=== PATIENT | male | born 1980 | race Caucasian/White ===

== ENCOUNTER 2018-06-01 10:17 | Emergency (ER) | payer MEDICARE, MEDICAID ==
[~2018-06-01] VITALS: Ht 172.7 cm; Wt 77.3 kg
[~2018-06-01 10:17] MED LIST: IBUP-812 PO; NO HOME MEDS
[2018-06-01] MEDS ORDERED: OLANZapine **IM** 10 mg inj. IM ONE (10:35)
[2018-06-01 11:03] LABS: CLARITY,URINE CLEAR (Clear); COLOR,URINE YELLOW (Yellow); GLUCOSE, URINE NEGATIVE (Neg); KETONES,URINE 15 mg/dl (Neg); LEUKOCYTE ESTERASE ,URINE NEGATIVE (Neg); NITRITES, URINE NEGATIVE (Neg); OCCULT BLOOD,URINE TRACE-INTACT (Neg); PROTEIN,URINE NEGATIVE (Neg); UROBILINOGEN,URINE 0.2 E.U/dL (0.2-1.0)
[2018-06-01 11:20] LABS: URINE AMPHETAMINE SCREEN NEGATIVE (Neg); URINE BARBITUATE SCREEN NEGATIVE (Neg); URINE BENZODIAZEPINES SCREEN NEGATIVE (Neg); URINE CANNABINOID SCREEN POSITIVE (Neg); URINE COCAINE SCREEN NEGATIVE (Neg); URINE METHADONE SCREEN NEGATIVE (Neg); URINE OPIATE SCREEN NEGATIVE (Neg); URINE PHENCYCLIDINE SCREEN NEGATIVE (Neg)
[2018-06-01 11:23] LABS: UA COLLECTION TYPE CLN CATCH MIDSTREAM
[2018-06-01 11:26] LABS: BACTERIA,URINE NONE SEEN /HPF (Neg); RBC,URINE NONE SEEN /HPF (0-2); WBC,URINE NONE SEEN /HPF (0-4)
[2018-06-01 11:28] LABS: SQUAMOUS EPITHELIAL CELL,UR NONE SEEN /LPF (FEW)
[2018-06-01 12:14] LABS: BASOPHILS % (AUTO) 0.2 % (0-1); EOSINOPHILS % (AUTO) 0.1 % (0-6); HEMATOCRIT 43.1 % (42.0-52.0); LYMPHOCYTES # (AUTO) 0.6 X10'3 (1.1-4.8); LYMPHOCYTES % (AUTO) 7.3 % (21-51); MEAN CORPUSCULAR HEMOGLOBIN 30.2 PG (27.0-31.0); MEAN CORPUSCULAR HGB CONC 34.9 g/dL (33.0-36.5); MEAN CORPUSCULAR VOLUME 86.7 FL (78-98); MEAN PLATELET VOLUME 8.1 FL (7.4-10.4); MONOCYTES % (AUTO) 11.8 % (2-12); NEUTROPHILS # (AUTO) 7.1 X10'3 (1.8-7.7); NEUTROPHILS % (AUTO) 80.6 % (42-75); PLATELET COUNT 274 X10'3 (140-440); RED BLOOD COUNT 4.98 X10'6 (4.70-6.10); WHITE BLOOD COUNT 8.8 X10'3 (4.5-11.0)
[2018-06-01 12:27] LABS: ALANINE AMINOTRANSFERASE 122 U/L (12-78); ALBUMIN/GLOBULIN RATIO 1.1 (1.1-1.5); ALKALINE PHOSPHATASE 46 IU/L (46-116); ANION GAP 11 (8-16); ASPARTATE AMINO TRANSFERASE 71 U/L (10-37); BILIRUBIN,TOTAL 0.6 MG/DL (0.1-1.0); BLOOD UREA NITROGEN 12 MG/DL (7-18); BUN/CREATININE RATIO 11.3 (5.4-32.0); CALCIUM 9.3 MG/DL (8.5-10.1); CHLORIDE 97 MMOL/L (99-107); CREATININE 1.06 MG/DL (0.60-1.10); GLUCOSE 96 MG/DL (70-104); POTASSIUM 4.2 MMOL/L (3.5-5.1); SODIUM 133 MMOL/L (135-145); TOTAL CARBON DIOXIDE 25.1 MMOL/L (24-32); TOTAL PROTEIN 7.7 G/DL (6.4-8.2); eGFR 78 ML/MIN
[2018-06-01 12:36] LABS: ETHANOL < 0.010 GM/DL (0.0-0.010)
--- NOTE | 2018-06-01 13:32 | NUR ---
PT IS SLEEPING ON BACK. NO S/S OF DISTRESS NOTED.
--- NOTE | 2018-06-01 14:04 | NUR ---
PT IS SLEEPING, UNLABORED BREATHING, NO S/S OF DISTRESS.
--- NOTE | 2018-06-01 15:16 | NUR ---
PT UP TO USE RESTROOM, STABLE GAIT, NO CONCERNS AT THIS TIME.
--- NOTE | 2018-06-01 15:33 | NUR ---
PT'S MOTHER CALLED TO ASK ABOUT PT. I ASKED PT IF HE GIVES PERMISSION FOR ME TO SPEAK TO HIS MOTHER ABOUT HIS CONDITION, PT SAID HE WANTS TO TALK TO HER INSTEAD. PT WILL BE GIVEN PHONE TO CALL MOTHER.
--- NOTE | 2018-06-01 15:37 | NUR ---
PT WAS GIVEN PHONE TO CALL HIS MOTHER, HE HUNG IT UP AND SAID, "I'M FINE."
--- NOTE | 2018-06-01 15:49 | NUR ---
PT APPEARS AGITATED, ANXIOUS, REPEATEDLY WALKING TO WATER FOUNTAIN AND BACK TO BED. PT REPORTS HE FEELS, "OVERHEATED." ATTEMPTED TO TAKE TEMPATURE, BUT PT REFUSED, SAYING, "I'M FINE."
--- NOTE | 2018-06-01 15:59 | NUR ---
PT WAS POURING WATER ON HEAD, I ASKED HIM TO STOP, PT IS NOW IN BED.
--- NOTE | 2018-06-01 16:09 | NUR ---
PT IS ACTING PSYCHOTIC, CONFUSED, APPEARS TO BE GETTING AGITATED. CONSULTED WITH HODAN KNIGHT, VERBAL ORDER FOR BENADRYL 50 MG, HALDOL 5 MG, ATIVAN 2 MG.
[2018-06-01] MEDS ORDERED: diphenhydrAMINE 25mg capsule PO ONE (16:10)
[2018-06-01] MEDS ORDERED: LORazepam 1 MG tablet PO ONE (16:10)
[2018-06-01] MEDS ORDERED: haloperidol 5mg tablet PO ONE (16:10)
[2018-06-01] MEDS ORDERED: LORazepam 2 mg/ml vial IM ONE (16:25)
[2018-06-01] MEDS ORDERED: haloperidol lactate 5mg/ml inj IM ONE (16:25)
[2018-06-01] MEDS ORDERED: diphenhydrAMINE 50 mg/ml inj IM ONE (16:25)
--- NOTE | 2018-06-01 16:37 | NUR ---
ATTEMPTED TO GIVE PT PO MEDS BUT PT REFUSED, THREW MEDS ACROSS ROOM. CONSULTED WITH HODAN, VERBAL ORDER FOR IM REPLACEMENT.
--- NOTE | 2018-06-01 16:39 | NUR ---
PT THREW MEDS ACROSS ROOM, SECURITY ASSISTED, ALL MEDICATIONS ACCOUNTED FOR AND WASTED PROPERLY.
--- NOTE | 2018-06-01 17:26 | NUR ---
pt is sleeping now. no s/s of distress, rr wnl, will continue to monitor
--- NOTE | 2018-06-01 17:29 | NUR ---
attempted to get vital signs, pt refused, will attempt again in 2 hours.
--- NOTE | 2018-06-01 19:00 | NUR ---
patient is asleep in bed, vitals WNL.
--- NOTE | 2018-06-01 21:00 | NUR ---
pt is still sleeping soundly in bed. no signs or symptoms of distress observed
--- NOTE | 2018-06-01 23:17 | NUR ---
Pt is resting in bed quitly, offers no complaints at this time.
--- NOTE | 2018-06-02 01:19 | NUR ---
Pt is sleeping on L side, no S or S of distress.
--- NOTE | 2018-06-02 03:00 | NUR ---
Pt got up to use the restroom and drank from his pitcher of water. He got back into bed and went back to sleep shortly after.
--- NOTE | 2018-06-02 05:19 | NUR ---
PT is resting on back sleeping. No signs or symptoms of distress at this time.
[2018-06-02] MEDS ORDERED: OLAN5TAB3 PO (13:16)
--- NOTE | 2018-06-02 13:46 | NUR ---
Called Behavioral health for pt to be evaluated.
[2018-06-02] MEDS ORDERED: LORazepam 2 mg/ml vial IM ONE (17:30)
--- NOTE | 2018-06-02 17:57 | NUR ---
allie requesting a shot to help him calm down. Ativan given
--- NOTE | 2018-06-02 19:33 | NUR ---
The patient is resting on his bed. He gave disorganized replies to questions. He stood the entire time. He stated, "I'm trying to think of all the funny things in tthe world" When asked how his appetite was he stated that he was fasting because that is what the book said to do. He was unable to verbalize a plan for after he left the hospital. He did start to become agitated with the one to one so the assessment was stopped.
[2018-06-02] MEDS: OLANZapine 2.5MG tablet PO SCH ×2 (20:19→21:00)
--- NOTE | 2018-06-02 21:16 | NUR ---
The patient is asleep on his bed. He was awakened for his evening medications but he refused them but was disorganized and difficult to understand why he was refusing them. Will try again after a while to see if he will take them.
--- NOTE | 2018-06-02 22:33 | NUR ---
The patient appears to be asleep at this time
--- NOTE | 2018-06-03 00:49 | NUR ---
The patient was up to use the bathroom and again the patient was offered his zyprexa but he continues to refuse. He stated he has been getting better without the medicine.
--- NOTE | 2018-06-03 02:21 | NUR ---
The patient appears to be asleep at this time
--- NOTE | 2018-06-03 04:54 | NUR ---
The patient was up to use the bathroom several times. He is polite/quiet and now appears to be back in bed. He has appeared to be asleep the majority of the night.
--- NOTE | 2018-06-03 06:28 | NUR ---
Patient up and walking in his room. No distress observed. Continue to monitor.
[2018-06-03] MEDS: olanzapine 10mg tablet PO PRN (07:52)
--- NOTE | 2018-06-03 08:05 | NUR ---
Patient keeps getting up and using the restroom. Patient went into the bathroom, came out, knocked on the bathroom door and then went in again. Patient took PRN Zyprexa, 5 mg. Patient next to him is agitated and making anxious.
--- NOTE | 2018-06-03 09:48 | NUR ---
Patient sleeping supine. No restlessness observed. Continue to monitor.
--- NOTE | 2018-06-03 11:10 | NUR ---
Patient continues to sleep on right side. No restlessness observed. Continue to monitor.
--- NOTE | 2018-06-03 12:58 | NUR ---
Patient calm and standing in his room. Patient wanted to help clean the bathroom and techs allowed patient to help. Patient smiling after helping. No distress observed. Continue to monitor.
[2018-06-03] MEDS: LORazepam 1 MG tablet PO PRN (13:36)
[2018-06-03] MEDS: haloperidol 5mg tablet PO PRN (13:36)
--- NOTE | 2018-06-03 13:40 | NUR ---
Relieving RN for lunch, pt is slightly agitated, pacing around bed, thinks there is a "granny in the trash", pt refused to take benadryl "they are pink and will turn me into a girl...they are girl pills...if they were blue i would take them"
--- NOTE | 2018-06-03 15:10 | NUR ---
Patient visiting with his mom. No distress observed. Continue to monitor.
--- NOTE | 2018-06-03 16:49 | NUR ---
Patient ambulatory to BR, steady gait. No distress observed. Patient is polite and directable.
--- NOTE | 2018-06-03 18:48 | NUR ---
Assumed care of patient, pt. sitting up eating dinner at this time. Introduced self, pt. cooperative and pleasant, however appears somewhat hyper vigilant. Obtained new order from Dr. Villela to change Zyprexa order to 10mg Q HS, and 5 mg Q AM.
[2018-06-03] MEDS ORDERED: olanzapine 10mg tablet PO SCH (21:00)
--- NOTE | 2018-06-03 21:03 | NUR ---
Nursing Note: 1:1 completed at bedside, pt. continues to be cooperative and pleasant, however fatigued and slightly irritable and has trouble answering questions r/t fatigue. He is alert and oriented X2 (name and ). Pt. denies any S/I, H/I, V/H, or depression. Pt. Does report anxiety, states, "I want to get back home." He currently lives with his mother and would like to return there. This press writer explained that [facility] will evaluate him per need for continued 5150 status, and he voiced understanding. Pt. compliant with medications although slightly resistant, states, "I'm done with meds, I've been taking them all day." This press writer explained that there is only one more medication, Zyprexa, that he needs to take and pt. is compliant. Will continue to monitor.
--- NOTE | 2018-06-03 23:00 | NUR ---
Pt. continues to sleep, laying on his rt. side, rr even and unlabored.
--- NOTE | 2018-06-04 01:07 | NUR ---
Pt. asleep on his left side at this time, rr even and unlabord.
--- NOTE | 2018-06-04 03:02 | NUR ---
Pt. sleeping on rt. side, no s/s of distress. Will continue to monitor.
--- NOTE | 2018-06-04 05:04 | NUR ---
Pt. up to use the BR, able to ambulate independently, he returns back to bed. Will continue to monitor.
--- NOTE | 2018-06-04 05:57 | NUR ---
Pt. refused VS this AM, requested to have them taken later, will endorse to AM shift. Pt. returned back to sleep.
[2018-06-04] MEDS: OLANZAPINE 5 MG TABLET PO SCH (08:17)
--- NOTE | 2018-06-04 19:38 | NUR ---
Elopement band #[id number] placed on pt's left wrist. Educated pt why the elopement band was placed.
--- NOTE | 2018-06-04 19:56 | NUR ---
PT RESTLESS, DRANK MANY PICTURES OF WATER OVER THE DAY, PICTURE TAKEN FROM PT AND GIVEN ONE CUP OF WATER AT A TIME DUE TO CONCERNS WITH WATER INTOXICATION. NEW ORDERS RECEIVED FROM DR GARZA TO INCREASE PT'S HS ZYPREXA TO 15MG HS PER RECOMMENDATION BY DR TAM'S CONSULT NOTE FROM 06/02/18.
[2018-06-04] MEDS: LORazepam 1 MG tablet PO PRN (20:03)
[2018-06-04] MEDS: diphenhydrAMINE 25mg capsule PO PRN ×2 (20:04→20:49)
[2018-06-04] MEDS: haloperidol 5mg tablet PO PRN ×2 (20:04→20:49)
[2018-06-04] MEDS: OLANZapine 5mg rapidly disint. tablet PO SCH (20:04)
--- NOTE | 2018-06-04 20:07 | NUR ---
MEDICATED FOR AGGITATION WITH ATIVAN, BENADRYL AND HALDOL. PT ATTEMPTING TO GET AWAY FROM NURSE AND GOING INTO ANOTHER PT'S ROOM. SECURITY CALLED TO BEDSIDE AND PT TOOK MEDS.
--- NOTE | 2018-06-04 20:19 | NUR ---
PT WALKED OVER TO SINK AND SPIT OUT 2 OF HIS MEDS THAT WERE JUST GIVEN. ONE WAS A BENADRYL CAPSULE AND ANOTHER WAS A GREEN COLORED MED.
--- NOTE | 2018-06-04 20:49 | NUR ---
PT SPIT OUT HALDOL AND BENADRYL PO, ORDERS RECEIVED FOR IM.
[2018-06-04] MEDS ORDERED: haloperidol lactate 5mg/ml inj IM ONE (20:55)
[2018-06-04] MEDS ORDERED: diphenhydrAMINE 50 mg/ml inj IM ONE (20:55)
--- NOTE | 2018-06-04 21:01 | NUR ---
PT NOT COOPERATIVE WITH TAKING PO MEDS, IM ORDERS RECEIVED, SECURITY CALLED TO BEDSIDE PT STARTED TO RUN FOR EXIT. ASSISTED BACK TO BED AND MEDICATED WITH IM BENADRYL AND HALDOL.
--- NOTE | 2018-06-04 22:22 | NUR ---
PT FINALLY LYING IN BED AND RESTING.
[2018-06-05] MEDS: LORazepam 1 MG tablet PO PRN (02:36)
[2018-06-05] MEDS: haloperidol 5mg tablet PO PRN (02:37)
[2018-06-05] MEDS: OLANZAPINE 5 MG TABLET PO SCH (02:37)
--- NOTE | 2018-06-05 02:42 | NUR ---
PT BECOMING AGGITATED AGAIN, UP TO BR SEVERAL TIMES. MEDICATED FOR AGGITATION WITH PRN MEDS, BUT REFUSED BENADRYL. ATTEMPTING TO KEEP MEDS UNDER TONGUE BUT CHECKED WITH FLASHLIGHT AND APPEARS TO HAVE SWALLOWED THEM.
--- NOTE | 2018-06-05 04:20 | NUR ---
WENT BACK TO SLEEP AFTER BEING MEDICATED.
--- NOTE | 2018-06-05 07:23 | NUR ---
pt sleeping on right side no distress noted.
--- NOTE | 2018-06-05 08:30 | NUR ---
pt eating breakfast, no distress noted. no assistance needed.
--- NOTE | 2018-06-05 11:30 | NUR ---
pt sleeping on back. rr equal nonlabored. no distress noted.
--- NOTE | 2018-06-05 15:42 | NUR ---
pt sitting on side of bed speaking with mother. no distress noted.
--- NOTE | 2018-06-05 16:26 | NUR ---
pt standing behind bed. asked what he is doing. stated he didnt want to pass gas in the bed.
--- NOTE | 2018-06-05 17:12 | NUR ---
found 3 tubes of toothpaste at pt bedside. pt has been eating toothpaste and placing it on his neck. given washcloth to clean toothpaste on mouth, hair and hands. Pt refused to wash it off.
--- NOTE | 2018-06-05 20:00 | NUR ---
PT STANDING BY HIS BED, PLAYING WITH THE CURTAINS, PT TOLD TO RETURN TO BED. PT COMPLIED.
[2018-06-05] MEDS: OLANZapine 5mg rapidly disint. tablet PO SCH (21:00)
--- NOTE | 2018-06-05 21:00 | NUR ---
PT RESTING QUIETLY IN BED
--- NOTE | 2018-06-05 21:45 | NUR ---
pt refused to take oral zypreza 15 mg stating he "didn't want to turn into a girl". Pt insists on IM zyprexa. Pt has no swallowing issues.
--- NOTE | 2018-06-05 22:45 | NUR ---
PT RESTING QUIETLY IN BED
--- NOTE | 2018-06-06 00:10 | NUR ---
PT RESTING QUIETLY IN BED
--- NOTE | 2018-06-06 02:20 | NUR ---
PT RESTING QUIETLY IN BED
--- NOTE | 2018-06-06 04:01 | NUR ---
PT RESTING QUIETLY IN BED
--- NOTE | 2018-06-06 06:30 | NUR ---
Assumed care from nurseYesenia. Pt sleeping right side, normal RR, even and unlabored. No s/s of distress.
[2018-06-06] MEDS: OLANZAPINE 5 MG TABLET PO SCH (08:09)
--- NOTE | 2018-06-06 08:27 | NUR ---
Pt awake, pacing appears confused and disoriented. Encouraged pt to sit back on his bed to decreases risk of falls. Pt agreed and sat down but continues to sit then stand then sit then stand. Olanzapine 5mg given. Pt compliant and thanked this nurse.
[2018-06-06] MEDS: LORazepam 1 MG tablet PO PRN ×2 (08:36→14:12)
--- NOTE | 2018-06-06 09:28 | NUR ---
Pt sleeping on his back normal RR even and unlabored.
--- NOTE | 2018-06-06 11:37 | NUR ---
Pt given Ativan at 0836 and went to sleep shortly after. He is on his left side with the blankets over his head. No s/s of distress.
--- NOTE | 2018-06-06 13:25 | NUR ---
Pt up eating; then laid down after he ate and is now laying on his back with is eyes closed; RR even and unlabored. No s/s of distress.
--- NOTE | 2018-06-06 15:17 | NUR ---
Pt pacing the floors, mumbling to himself, standing with his face in the curtain, sitting then standing and going in and out of the bathroom; pt encouraged numerous times to relax, look at magazines, color. do a work search puzzle, deep breath exercies suggested and education provided. Pt continues and is unable to focus. Anxiety increased. Pt given Ativan 2mg PO and encouraged to relax on his bed.
--- NOTE | 2018-06-06 17:11 | NUR ---
Pt continues to sleep; RR even and unlabored. No s/s of distress.
--- NOTE | 2018-06-06 17:57 | NUR ---
Patient refused vital signs. States he does not want "a female to touch him."
--- NOTE | 2018-06-06 19:14 | NUR ---
rcvd report assumed care from Devika MANNING. Pt was sitting on his bed eating dinner at change of shift. Pt repeatedly asking for toothpaste to put on his face. Pt also requests water. He tells dayswift nurse "you get an A+ today." Pt is smiling and pleasant. Denies a/vh, denies s/i. Pt states he is here because "My mom and my counselor said I should come here for a 3 day evaluation so im here." Pt reports sleeping well, appetite is good.
--- NOTE | 2018-06-06 19:38 | NUR ---
pts mom is here visiting.
[2018-06-06] MEDS: OLANZapine 5mg rapidly disint. tablet PO SCH (20:12)
--- NOTE | 2018-06-06 20:39 | NUR ---
Pt up to bathroom to brush teeth.
--- NOTE | 2018-06-06 20:59 | NUR ---
pt laying on his back sleeping rr even and unlabored. Pt was resistant to taking evening meds stating "I only take ativan." Pt initially refused then a few minutes later asked for the pills. Pt also requested water and toothpaste. Pt smeared a small amount of toothpaste on his face before getting in to bed.
--- NOTE | 2018-06-06 23:40 | NUR ---
Pt laying on his left side sleeping rr even and unlabored no s/s distress.
--- NOTE | 2018-06-07 01:51 | NUR ---
Pt laying on his left side sleeping rr even and unlabored no s/s distress.
--- NOTE | 2018-06-07 03:56 | NUR ---
pt is laying on his left side sleeping rr even and unlabored no s/s distress.
--- NOTE | 2018-06-07 05:48 | NUR ---
Pt is awake stating he slept good. States "I just want to go home, my mom said to come here for 3 days but Im ready to go." He has redness on his cheek and is asking for toothpaste to brush his teeth. Pt then states he is going to put toothpaste on his face. I offered to discuss his pimple with the doctor for a medication and pt stated "No I just use toothpaste, I dont want medicine." Did not give toothpaste to patient for his face. He is now laying down w/the blanket over him, appears to be resting comfortably.
--- NOTE | 2018-06-07 06:32 | NUR ---
Patient sleeping on right side. No restlessness observed. Continue to monitor
--- NOTE | 2018-06-07 08:12 | NUR ---
Patient up and eating breakfast. No distress observed. Continue to monitor.
[2018-06-07] MEDS: OLANZAPINE 5 MG TABLET PO SCH (08:34)
--- NOTE | 2018-06-07 10:10 | NUR ---
Patient standing up in room. No distress observed. Continue to monitor.
--- NOTE | 2018-06-07 11:55 | NUR ---
Patient had a snack and put the remaining snack on the nurse's station counter. No distress observed. Continue to monitor.
--- NOTE | 2018-06-07 14:39 | NUR ---
Patient sitting up in bed. No distress observed. Continue to monitor.
--- NOTE | 2018-06-07 16:36 | NUR ---
Patient awake and laying in bed. No distress observed. Continue to monitor.
--- NOTE | 2018-06-07 17:35 | NUR ---
Patient visiting with his mother. No distress observed. Continue to monitor.
--- NOTE | 2018-06-07 18:42 | NUR ---
rcvd report from Gabbie MANNING. Assumed care of pt. Pt ate dinner meal, is acting bizzare, gets up and stands in the corner periodically and then sits back in bed. Pt has toothpaste on his face. Pt states his day was good, he admits to spitting out pills, but cant say if they were during the day or night. Explained to pt he is here to work on getting well and encouraged pt to follow med regimen. Pt states he understands.
[2018-06-07] MEDS: olanzapine 10mg tablet PO PRN (18:54)
[2018-06-07] MEDS: OLANZapine 5mg rapidly disint. tablet PO SCH (20:42)
[2018-06-07] MEDS: LORazepam 1 MG tablet PO PRN (21:42)
--- NOTE | 2018-06-07 21:44 | NUR ---
Pt was anxious at the beginning of shift, was given prn zyprexa which seemed to work for a short time. Pt was then given evening dose of 15mg of zyprexa. Pt had order for ativan but was combined w/other meds, spoke w/Tasha Guerrero, instructed to give ativan only. pt was med compliant w/all meds tonight. Pt is requesting toothpaste to "brush his teeth." Pts toothbrush is still in the wrapper and I told him to open the wrapper and Id get him toothpaste and he states "I dont want to use the toothpaste I want to use my finger, I dont want to be weird." I asked why he thought using the toothbrush on his teeth is weird? Pt states "I want to put it on my neck and my face." I replied "toothpaste is only for teeth, not necks and faces." Pt states ok. This seems to satisfy his request for toothpaste for the moment.
--- NOTE | 2018-06-07 23:05 | NUR ---
Pt is sleeping laying on his left side rr even and unlabored no s/s distress
--- NOTE | 2018-06-08 02:38 | NUR ---
Pt is sleeping on his right side rr even and unlabored.
--- NOTE | 2018-06-08 05:42 | NUR ---
pt is sleeping
[2018-06-08] MEDS: LORazepam 1 MG tablet PO PRN (07:09)
[2018-06-08] MEDS: OLANZAPINE 5 MG TABLET PO SCH (07:09)
[2018-06-08] MEDS: diphenhydrAMINE 25mg capsule PO PRN (07:09)
[2018-06-08] MEDS: haloperidol 5mg tablet PO PRN (07:10)
[2018-06-08] MEDS: OLANZapine 5mg rapidly disint. tablet PO SCH (19:14)
--- NOTE | 2018-06-08 19:36 | NUR ---
THe patient was resting on his bed. When approached for the evening assessment he had toothpaste on his face and neck which he stated was for acne. The patient has very poor insight. He denies that he needs medications or mental health treatment. He stated that he is ready to go home to be with his mother. When asked why he was here he stated, "My mom said to come here for 3 days to calm down" He stated his discharge plan was to return home and make his garden and clean the back yard. He stated he has been living with his brother. He denies thoughts to harm himself or others. When asked how his mood was he stated "Awesome. Really awesome" He was easily agitated. He was given his HS medications early.
--- NOTE | 2018-06-08 21:15 | NUR ---
The patient appears to be asleep at this time.
--- NOTE | 2018-06-08 22:24 | NUR ---
The patient appears to be sleeping
--- NOTE | 2018-06-09 00:07 | NUR ---
The patient appears to be asleep at this time.
--- NOTE | 2018-06-09 01:45 | NUR ---
The patient appears to be sleeping
--- NOTE | 2018-06-09 04:01 | NUR ---
The patient appears to be asleep
--- NOTE | 2018-06-09 07:00 | NUR ---
Assumed care from nurse, NIGEL Curran. Pt sleeping right side, normal RR, even and unlabored. No s/s of distress.
[2018-06-09] MEDS: OLANZAPINE 5 MG TABLET PO SCH (07:06)
--- NOTE | 2018-06-09 08:00 | NUR ---
Normal RR, even and unlabored. No s/s of distress. Asking for breakfast.
--- NOTE | 2018-06-09 09:00 | NUR ---
Pt sleeping , normal RR, even and unlabored. No s/s of distress. Will continue to monitor.
--- NOTE | 2018-06-09 10:00 | NUR ---
Patient up and down from bed. No s/s of distress.
--- NOTE | 2018-06-09 12:00 | NUR ---
Patient awake and laying in bed. No distress observed. Continue to monitor.
--- NOTE | 2018-06-09 13:00 | NUR ---
Patient awake and laying in bed. No distress observed. Continue to monitor.
--- NOTE | 2018-06-09 14:00 | NUR ---
Patient awake and laying in bed. Patient up and down to bathroom. Continue to monitor.
--- NOTE | 2018-06-09 15:00 | NUR ---
Patient awake and laying in bed. No distress observed. Continue to monitor.
--- NOTE | 2018-06-09 16:00 | NUR ---
Patient awake and laying in bed. Patient pacing back and forth to bathroom. Continue to monitor.
--- NOTE | 2018-06-09 17:00 | NUR ---
No distress observed. Continue to monitor.
--- NOTE | 2018-06-09 18:24 | NUR ---
Patient report given to NIGEL Mayfield
--- NOTE | 2018-06-09 18:40 | NUR ---
Patient sitting on side of bed eating dinner, he is very quiet. I will continue to monitor.
[2018-06-09] MEDS: LORazepam 1 MG tablet PO PRN (19:54)
[2018-06-09] MEDS: OLANZapine 5mg rapidly disint. tablet PO SCH (19:54)
[2018-06-10 05:45] VITALS: BP 113/75
[2018-06-10] MEDS: OLANZAPINE 5 MG TABLET PO SCH (08:33)
--- NOTE | 2018-06-10 12:55 | NUR ---
PT IS RESTLESS. PT IS REQUESTING WATER. PT WAS PROVIDED A FULL PITCHER OF WATER AND ASKING TO WAIT A LITTLE BIT FOR MORE.
--- NOTE | 2018-06-10 12:56 | NUR ---
PT IS MANIC AND ASKING FOR THINGS NON STOP
[2018-06-10] MEDS: LORazepam 1 MG tablet PO PRN (13:34)
[2018-06-10] MEDS: haloperidol 5mg tablet PO PRN (13:35)
[2018-06-10] MEDS: diphenhydrAMINE 25mg capsule PO PRN (13:35)
--- NOTE | 2018-06-10 13:55 | NUR ---
relieving RN for lunch, pt is resting quietly on bed
--- NOTE | 2018-06-10 14:23 | NUR ---
GAVE REPORT TO INTAKE STAFF FOR [facility] IN [place]
--- NOTE | 2018-06-10 15:17 | NUR ---
Pt has been accepted at [facility] by Dr. Quintanilla. He will being going to [address] and will be picked up approximately @ 1700. Report to be called to [phone].
--- NOTE | 2018-06-10 15:23 | NUR ---
Marck from [facility] called and inquired about last vital signs. Call report to [phone] when pt picked up.
--- NOTE | 2018-06-10 16:28 | NUR ---
Report called to Dino MANINNG at [facility] [phone]
--- NOTE | 2018-06-10 16:36 | NUR ---
Report called to Dino MANNING at [facility] [phone]. Pt escorted out with ride and few belongings in stable condition.
== END 2018-06-10 16:49 ==
LOC: ER 10:18
DX: F20.9 Schizophrenia, unspecified (principal); Z56.0 Unemployment, unspecified
CPT/HCPCS: 36415; 80053; 80305; 80320; 81001; 84443; 85025; 96372; 99285; J1200; J1630; J2060; Q0163

== ENCOUNTER 2020-08-26 11:19 | Emergency (ER) | payer MEDICAID ==
[~2020-08-26] VITALS: Ht 172.7 cm; Wt 73.8 kg
[~2020-08-26 11:19] MED LIST changes: -IBUP-812 PO; -NO HOME MEDS; +OLAN5TAB3 PO
[2020-08-26 12:12] VITALS: BP 126/87
== END 2020-08-26 13:04 | disposition left against medical advice (07) ==
LOC: ER 11:20
DX: F30.9 Manic episode, unspecified (principal); Z53.21 Procedure and treatment not carried out due to patient leaving prior to being seen by health care provider

== ENCOUNTER 2020-11-20 11:00 | Emergency (ER) | payer MEDICAID ==
[~2020-11-20] VITALS: Ht 172.7 cm; Wt 81.8 kg
[2020-11-20 12:15] LABS: URINE AMPHETAMINE SCREEN NEGATIVE (Neg); URINE BARBITUATE SCREEN NEGATIVE (Neg); URINE BENZODIAZEPINES SCREEN NEGATIVE (Neg); URINE CANNABINOID SCREEN POSITIVE (Neg); URINE COCAINE SCREEN NEGATIVE (Neg); URINE METHADONE SCREEN NEGATIVE (Neg); URINE OPIATE SCREEN NEGATIVE (Neg); URINE PHENCYCLIDINE SCREEN NEGATIVE (Neg)
[2020-11-20 12:44] LABS: ALANINE AMINOTRANSFERASE 28 U/L (12-78); ALBUMIN 4.5 G/DL (3.4-5.0); ALBUMIN/GLOBULIN RATIO 1.2 (1.1-1.5); ALKALINE PHOSPHATASE 49 IU/L (46-116); ANION GAP 13 (8-16); ASPARTATE AMINO TRANSFERASE 36 U/L (10-37); BILIRUBIN,TOTAL 0.7 MG/DL (0.1-1.0); BLOOD UREA NITROGEN 10 MG/DL (7-18); BUN/CREATININE RATIO 9.8 (5.4-32.0); CALCIUM 9.1 MG/DL (8.5-10.1); CHLORIDE 103 MMOL/L (99-107); CREATININE 1.02 MG/DL (0.60-1.10); ETHANOL < 0.010 GM/DL (0.0-0.010); GLUCOSE 94 MG/DL (70-104); POTASSIUM 3.9 MMOL/L (3.5-5.1); SODIUM 141 MMOL/L (135-145); TOTAL CARBON DIOXIDE 24.7 MMOL/L (24-32); TOTAL PROTEIN 8.4 G/DL (6.4-8.2); eGFR 80 ML/MIN
[2020-11-20 13:37] LABS: BASOPHILS % (AUTO) 0.3 % (0-1); EOSINOPHILS % (AUTO) 0 % (0-6); HEMATOCRIT 47.9 % (42.0-52.0); HEMOGLOBIN 16.1 g/dl (14.0-17.9); LYMPHOCYTES # (AUTO) 0.8 X10'3 (1.1-4.8); LYMPHOCYTES % (AUTO) 7.9 % (21-51); MEAN CORPUSCULAR HEMOGLOBIN 30.1 PG (27.0-31.0); MEAN CORPUSCULAR HGB CONC 33.5 g/dL (33.0-36.5); MEAN CORPUSCULAR VOLUME 89.9 FL (78-98); MEAN PLATELET VOLUME 8.5 FL (7.4-10.4); MONOCYTES # (AUTO) 0.8 X10'3 (0-0.9); MONOCYTES % (AUTO) 8.7 % (2-12); NEUTROPHILS # (AUTO) 8.1 X10'3 (1.8-7.7); NEUTROPHILS % (AUTO) 83.1 % (42-75); PLATELET COUNT 403 X10'3 (140-440); RED BLOOD COUNT 5.33 X10'6 (4.70-6.10); RED CELL DISTRIBUTION WIDTH 12.9 % (11.5-14.5); WHITE BLOOD COUNT 9.7 X10'3 (4.5-11.0)
--- NOTE | 2020-11-20 17:04 | NUR ---
PACKET FAXED TO [facility]
[2020-11-20 17:09] LABS: CLARITY,URINE CLEAR (Clear); COLOR,URINE STRAW (Yellow); UA COLLECTION TYPE CLN CATCH MIDSTREAM
[2020-11-20 17:10] LABS: GLUCOSE, URINE NEGATIVE (Neg); KETONES,URINE 40 mg/dl (Neg); LEUKOCYTE ESTERASE ,URINE NEGATIVE (Neg); NITRITES, URINE NEGATIVE (Neg); OCCULT BLOOD,URINE NEGATIVE (Neg); PROTEIN,URINE NEGATIVE (Neg); UROBILINOGEN,URINE 0.2 E.U/dL (0.2-1.0)
--- NOTE | 2020-11-20 17:22 | NUR ---
PT'S FAMILY'S PHONE NUMBERS: MARGY EDMOND - AUNT: [phone] ANDREAS INFANTE - MOM: [phone]
[2020-11-20] MEDS: OLANZapine 5mg rapidly disint. tablet PO SCH (17:39)
--- NOTE | 2020-11-20 17:50 | NUR ---
PT REFUSED VITALS
--- NOTE | 2020-11-20 18:20 | NUR ---
Patient acting OCD. Wants water but not in a pitcher. Wants food but doesn't want his meal tray. Continue to monitor.
--- NOTE | 2020-11-20 19:30 | NUR ---
One to one with the patient to assess for severity of thought disorder. Initially he would not verbalize his replies but was humming them. When asked if he was having pain he started giving verbal replies but they did not correlate to what was being asked. He stated, "I want to be able to see Abhinav. My booties is too hot" He did know he was in the hospital but when asked why stated, "Because I need to see my mom and dad" He denied A/V hallucinations but is actively responding to internal stimuli and stated "My mom told me to shoosh" When asked when his last bowel movement he replied, "I don't do that" He is disorganized. He refused to eat his evening meal. He appears restless. He denies suicidal or homicidal ideation.
--- NOTE | 2020-11-20 21:15 | NUR ---
The patient appears to be sleeping
--- NOTE | 2020-11-20 22:59 | NUR ---
The patient appears to be sleeping
--- NOTE | 2020-11-21 00:33 | NUR ---
The patient currently appears to be sleeping but restlessly
--- NOTE | 2020-11-21 01:58 | NUR ---
The patient is responding to internal stimuli. He is disorganized. He is refusing to eat. He is very restless. MD made aware and orders received.
[2020-11-21] MEDS ORDERED: OLANZapine 5mg rapidly disint. tablet PO ONE (02:00)
--- NOTE | 2020-11-21 02:42 | NUR ---
The patient is restless. Up to use the bathroom
--- NOTE | 2020-11-21 04:30 | NUR ---
The patient appears to be sleeping
--- NOTE | 2020-11-21 06:45 | NUR ---
Received Pt in bed sleeping w/o distress.
[2020-11-21] MEDS: OLANZapine 5mg rapidly disint. tablet PO SCH (08:42)
--- NOTE | 2020-11-21 09:30 | NUR ---
Pt wke breifly and took AM med. Pt appeared confused and asked for water. Pt got up to use bathroom and returned to sleep. Pt did nit eat but a few bites of breakfast.
--- NOTE | 2020-11-21 12:47 | NUR ---
Pt got up again to use bathroom and to brush his teeth. Pt returned to bed and was given water.
--- NOTE | 2020-11-21 12:59 | NUR ---
up in bed eating his lunch.
--- NOTE | 2020-11-21 15:19 | NUR ---
Pt continues to request ice water intermitently. He says words and sits up in bed then lays back down. Up to bathroom again.
--- NOTE | 2020-11-21 17:22 | NUR ---
PATIENT REFUUS BLOOD PRESSURE, BUT ALLOWED ME TO GET HIS HEART RATE AND SAT LEVELS.
[2020-11-21] MEDS ORDERED: OLANZapine 2.5MG tablet PO STA (17:34)
[2020-11-21] MEDS ORDERED: LORazepam 1 MG tablet PO PRN (17:35)
--- NOTE | 2020-11-21 18:19 | NUR ---
The patient refused his dinner tray. He is very disorganized and restless. He did take the PM zyprexa dose. He presents as distressed. He stated that he is being told he can't eat anymore "because I want to live" He is very disheveled. He is unable to verbalize a plan for food, long term or clothing. He is unable to answer when he last had a bowel movement.
--- NOTE | 2020-11-21 21:04 | NUR ---
The patient appears to be sleeping
--- NOTE | 2020-11-21 23:02 | NUR ---
The patient appears to be sleeping
--- NOTE | 2020-11-22 02:32 | NUR ---
The patient currently appears to be sleeping but has been up to use the bathroom.
--- NOTE | 2020-11-22 04:03 | NUR ---
The patient appears to be sleeping
--- NOTE | 2020-11-22 05:38 | NUR ---
PT REFUSED MORNING VITALS.
--- NOTE | 2020-11-22 07:02 | NUR ---
Pt appears to be sleeping, but is intermittently talking and is restless.
[2020-11-22] MEDS: OLANZapine 5mg rapidly disint. tablet PO SCH ×2 (10:42→20:06)
--- NOTE | 2020-11-22 11:09 | NUR ---
Pt. appears intermittently restless, asking to change beds, pt. informed we can change his linens, but he may not change beds. Pt. is now laying in bed.
--- NOTE | 2020-11-22 13:13 | NUR ---
Pt is calm and cooperative. Occationally yells. Given a lunch tray by a tech. He refused the tray because he didn't want food from a cop winder(not an officer). I removed the tray then brought it back. He accepted the food.
--- NOTE | 2020-11-22 19:34 | NUR ---
Patient received sleeping; briefly woke to use the restroom and returned to bed. Patient sat up for physical assessment; denies discomfort and returned to sleep.
--- NOTE | 2020-11-22 21:02 | NUR ---
Patient observed sleeping; does not appear to be having difficulty. Even, non labored resperations; observed self repositioning.
--- NOTE | 2020-11-22 23:32 | NUR ---
Patient appears to be sleeping without difficulty. No respiratory distress presented. Self repositioning.
--- NOTE | 2020-11-23 01:05 | NUR ---
Patient appears to be sleeping without difficulty. Continues to self reposition and no respiratory distress presented.
--- NOTE | 2020-11-23 03:29 | NUR ---
Patient observed sleeping and does not appear to be having difficulty. No respirator distress observed and self repositioning.
--- NOTE | 2020-11-23 05:03 | NUR ---
Patient appears to be sleeping without difficulty. No respiratory distress observed. Patient continues to slef reposition.
[2020-11-23] MEDS: OLANZapine 5mg rapidly disint. tablet PO SCH ×2 (08:27→19:55)
--- NOTE | 2020-11-23 09:22 | NUR ---
Pt in bed resting comfortably. Requested Ice water and has no other needs at this time.
--- NOTE | 2020-11-23 12:11 | NUR ---
Pt in bed asleep. No s/s of distress at this time.
--- NOTE | 2020-11-23 16:12 | NUR ---
Pt quiet in bed. No needs at this time.
--- NOTE | 2020-11-23 19:16 | NUR ---
Pt finished meal, pt calm and cooperative, denies MH symptoms, in no distress at this time.
--- NOTE | 2020-11-23 21:32 | NUR ---
Pt appears to be sleeping, in no distress.
--- NOTE | 2020-11-24 00:18 | NUR ---
Pt up to the bathroom, back in bed lying on his right side, no distress noted.
--- NOTE | 2020-11-24 02:14 | NUR ---
Pt appears to be sleeping. No distress noted.
--- NOTE | 2020-11-24 05:03 | NUR ---
Pt appears to be sleeping, no distress noted.
--- NOTE | 2020-11-24 09:04 | NUR ---
Pt requested to have 08 meds at 10.
[2020-11-24] MEDS: OLANZapine 5mg rapidly disint. tablet PO SCH ×2 (10:23→20:05)
--- NOTE | 2020-11-24 17:10 | NUR ---
Patient sleeping in right side. No distress observed. Continue to monitor.
--- NOTE | 2020-11-24 19:34 | NUR ---
One to one with the patient to assess severity of thought disorder and observe his behaviors. The patient is now eating and he ate 100% of his meals. He still verbalizes delusional thoughts but he was better able to articulate his needs. He is reporting that he is experiencing acid reflux and that he was drinking water to help with that but he is asking for prn tums. Rex KNIGHT made aware and orders received. The patient stated that he felt "a little depressed because I have to wait until July 27 until I get to [place]...I only have so much time to play games..." Stated he communicates with her all the time. He has been polite and cooperative.
[2020-11-24] MEDS ORDERED: calcium carbonate 500mg chew tablet PO ONE (20:00)
[2020-11-24] MEDS: calcium carbonate 500mg chew tablet PO SCH (20:00)
--- NOTE | 2020-11-24 21:26 | NUR ---
The patient appears to be sleeping
--- NOTE | 2020-11-24 23:27 | NUR ---
THe patient appears to be sleeping
--- NOTE | 2020-11-25 01:02 | NUR ---
The patient appears to be sleeping
--- NOTE | 2020-11-25 03:48 | NUR ---
The patient appears to be sleeping well
--- NOTE | 2020-11-25 04:58 | NUR ---
The patient appears to be sleeping
[2020-11-25] MEDS: OLANZapine 5mg rapidly disint. tablet PO SCH ×2 (08:55→20:19)
[2020-11-25] MEDS: calcium carbonate 500mg chew tablet PO SCH ×3 (08:55→18:13)
--- NOTE | 2020-11-25 08:55 | NUR ---
Patient given meds, meds was well tolerated well.
--- NOTE | 2020-11-25 10:00 | NUR ---
patient sleeping at this time
--- NOTE | 2020-11-25 11:00 | NUR ---
Patient in bed sleeping
--- NOTE | 2020-11-25 12:09 | NUR ---
Patient appear to be sleeping
--- NOTE | 2020-11-25 12:39 | NUR ---
Scheduled med given. Patient ambulate to the bathroom
--- NOTE | 2020-11-25 13:41 | NUR ---
Patient sleeping comfortably on bed, no distress noted at this time.
--- NOTE | 2020-11-25 14:29 | NUR ---
Patient resting on bed, no distress noted
--- NOTE | 2020-11-25 16:00 | NUR ---
Patient resting in bed, awake.
--- NOTE | 2020-11-25 19:02 | NUR ---
One to one with the patient. His replies were mildly disorganized. He described his mood was "good" He has not had any behaviors that have required redirection. He ate 100% of his evening meal. He stated that he felt the medications were helping him and he has been treatment compliant. When asked what his plans for the future was he stated [place] but that he needed to read the book first. He complained of pain in his arms and then added, "I just need to eat celery and I'll be alright"
--- NOTE | 2020-11-25 21:37 | NUR ---
The patient appears to be sleeping
--- NOTE | 2020-11-25 23:18 | NUR ---
The patient appears to be sleeping
--- NOTE | 2020-11-26 01:34 | NUR ---
The patient appears to be sleeping
--- NOTE | 2020-11-26 03:39 | NUR ---
The patient appears to be sleeping
--- NOTE | 2020-11-26 04:54 | NUR ---
The patient appears to be sleeping
[2020-11-26 06:06] VITALS: BP 119/97
--- NOTE | 2020-11-26 07:16 | NUR ---
PT AWAKE, SITTING ON BED, TALKING WITH THE PATIENT IN THE BED NEXT TO HIM
[2020-11-26] MEDS: OLANZapine 5mg rapidly disint. tablet PO SCH (07:57)
[2020-11-26] MEDS: calcium carbonate 500mg chew tablet PO SCH ×2 (07:57→12:42)
--- NOTE | 2020-11-26 08:15 | NUR ---
pt up out of bed, amulating with walker to bathroom, uses fww
--- NOTE | 2020-11-26 10:16 | NUR ---
pt sleeping on bed
--- NOTE | 2020-11-26 11:20 | NUR ---
PT BEING SEEN BY [facility] WORKER JUSTUS
--- NOTE | 2020-11-26 12:35 | NUR ---
SPOKE WITH PTS MOTHER ANDREAS, SHE WILL BE PICKING PT UP FOR DC APPROX 1400
--- NOTE | 2020-11-26 14:12 | NUR ---
PT LAYING QUIETLY ON BED PATIENTLY AWAITING FAMILY TO ARRIVE.
== END 2020-11-26 14:53 | disposition home or self-care (01) ==
LOC: ER 11:00
DX: F20.9 Schizophrenia, unspecified (principal); Z20.822 Contact with and (suspected) exposure to COVID-19; Z91.19 Patient's noncompliance with other medical treatment and regimen; Z56.0 Unemployment, unspecified; Z79.899 Other long term (current) drug therapy
CPT/HCPCS: 36415; 80053; 80305; 80320; 81003; 85025; 87635; 99285; C9803

== ENCOUNTER 2021-02-16 13:11 | Emergency (ER) | payer MEDICAID ==
[~2021-02-16] VITALS: Ht 172.7 cm; Wt 81.4 kg
[2021-02-16] MEDS ORDERED: diphenhydrAMINE 50 mg/ml inj IM ONE (13:35)
[2021-02-16] MEDS ORDERED: haloperidol lactate 5mg/ml inj IM ONE (13:35)
[2021-02-16] MEDS ORDERED: LORazepam 2 mg/ml vial IM ONE (13:35)
[2021-02-16 14:01] LABS: BASOPHILS # (AUTO) 0.1 X10'3 (0-0.2); BASOPHILS % (AUTO) 0.5 % (0-1); EOSINOPHILS % (AUTO) 0.1 % (0-6); HEMATOCRIT 45.4 % (42.0-52.0); LYMPHOCYTES # (AUTO) 0.6 X10'3 (1.1-4.8); LYMPHOCYTES % (AUTO) 5.6 % (21-51); MEAN CORPUSCULAR HEMOGLOBIN 31.2 PG (27.0-31.0); MEAN CORPUSCULAR HGB CONC 35.2 g/dL (33.0-36.5); MEAN CORPUSCULAR VOLUME 88.6 FL (78-98); MONOCYTES % (AUTO) 9.5 % (2-12); NEUTROPHILS # (AUTO) 8.5 X10'3 (1.8-7.7); NEUTROPHILS % (AUTO) 84.3 % (42-75); PLATELET COUNT 338 X10'3 (140-440); RED BLOOD COUNT 5.12 X10'6 (4.70-6.10); RED CELL DISTRIBUTION WIDTH 12.9 % (11.5-14.5); WHITE BLOOD COUNT 10.1 X10'3 (4.5-11.0)
[2021-02-16 14:19] LABS: ALANINE AMINOTRANSFERASE 24 U/L (12-78); ALBUMIN 4.7 G/DL (3.4-5.0); ALBUMIN/GLOBULIN RATIO 1.3 (1.1-1.5); ALKALINE PHOSPHATASE 44 IU/L (46-116); ANION GAP 13 (8-16); ASPARTATE AMINO TRANSFERASE 27 U/L (10-37); BILIRUBIN,TOTAL 0.8 MG/DL (0.1-1.0); BLOOD UREA NITROGEN 12 MG/DL (7-18); BUN/CREATININE RATIO 7.7 (5.4-32.0); CHLORIDE 101 MMOL/L (99-107); CREATININE 1.55 MG/DL (0.60-1.10); ETHANOL < 0.010 GM/DL (0.0-0.010); GLUCOSE 86 MG/DL (70-104); POTASSIUM 3.4 MMOL/L (3.5-5.1); SODIUM 139 MMOL/L (135-145); TOTAL CARBON DIOXIDE 24.8 MMOL/L (24-32); TOTAL PROTEIN 8.3 G/DL (6.4-8.2); eGFR 49 ML/MIN
[2021-02-16 14:31] LABS: CALCIUM 9.5 MG/DL (8.5-10.1)
[2021-02-17 09:05] LABS: CLARITY,URINE CLEAR (Clear); COLOR,URINE YELLOW (Yellow); GLUCOSE, URINE NEGATIVE (Neg); KETONES,URINE >=80 mg/dl (Neg); LEUKOCYTE ESTERASE ,URINE NEGATIVE (Neg); NITRITES, URINE NEGATIVE (Neg); OCCULT BLOOD,URINE NEGATIVE (Neg); PH,URINE 5.5 (4.8-8.0); PROTEIN,URINE NEGATIVE (Neg); UROBILINOGEN,URINE 0.2 E.U/dL (0.2-1.0)
[2021-02-17 09:12] LABS: UA COLLECTION TYPE VOIDED
[2021-02-17 09:33] LABS: URINE AMPHETAMINE SCREEN NEGATIVE (Neg); URINE BARBITUATE SCREEN NEGATIVE (Neg); URINE BENZODIAZEPINES SCREEN NEGATIVE (Neg); URINE CANNABINOID SCREEN POSITIVE (Neg); URINE COCAINE SCREEN NEGATIVE (Neg); URINE METHADONE SCREEN NEGATIVE (Neg); URINE OPIATE SCREEN NEGATIVE (Neg); URINE PHENCYCLIDINE SCREEN NEGATIVE (Neg)
--- NOTE | 2021-02-17 11:15 | NUR ---
Pt brought over to [facility] from main ER. He is calm and cooperative. He was offered a sandwich and accepted a half of one. The other half is labeled and in the frig.
--- NOTE | 2021-02-17 13:00 | NUR ---
Pt has been sleeping. He only ate a piece of his brownie at lunch then went back to sleep.
[2021-02-17] MEDS ORDERED: OLANZapine 5mg rapidly disint. tablet PO ONE (14:00)
--- NOTE | 2021-02-17 14:55 | NUR ---
Pt has been off his Zyprexa at home. He was given a one time dose of Zyprexa Zydis 10mg oral. He has been sleeping since admit. He was given snacks and lunch but continues to sleep. He is resting on his left side. Normal RR even and unlabored.
--- NOTE | 2021-02-17 18:47 | NUR ---
Assumed care; patient sleeping in bed with no apparent distress and self repositioning.
[2021-02-17] MEDS: OLANZapine 5mg rapidly disint. tablet PO SCH (21:00)
--- NOTE | 2021-02-17 21:02 | NUR ---
Patient easily aroused; pleasant and cooperative with medication. Denies c/o discomfort and no apparent distyress.
--- NOTE | 2021-02-17 23:13 | NUR ---
Patient sleeping; no apparent distress observed and continues to self reposition.
--- NOTE | 2021-02-18 01:27 | NUR ---
Patient sleeping; no apparent distress and self repositoning.
--- NOTE | 2021-02-18 03:47 | NUR ---
Patient observed sleeping; self repositioning and no apparent distress.
--- NOTE | 2021-02-18 05:27 | NUR ---
Patient sleeping; no apparent distress and self repositioning.
--- NOTE | 2021-02-18 07:02 | NUR ---
Patient sleeping in left side, patient was awake during shift change now sleeping
--- NOTE | 2021-02-18 09:37 | NUR ---
Patient sleeping on right side, no sings of distress
--- NOTE | 2021-02-18 11:31 | NUR ---
Patient sleeping on left side, this fha underwriter witnesses patient moving and placing covers over his head to dim the light. No distress noted.
--- NOTE | 2021-02-18 11:40 | NUR ---
Patient asked for ADL items, oral care given, deordant and fresh socks.
--- NOTE | 2021-02-18 12:12 | NUR ---
Patient sat up in bed and said "they are here that guys has been trying to kill me", this engineering technical writer re-assured patient that he is safe here and that no one comes in the ER with out him knowing, offered patient to try to get him a prn patient declined.
--- NOTE | 2021-02-18 13:14 | NUR ---
Patient sitting up in bed eating lunch, no distress noted
--- NOTE | 2021-02-18 14:09 | NUR ---
Patient just finished lunch "I ate a little bit", is laying back down, no sighs of distress
--- NOTE | 2021-02-18 15:14 | NUR ---
Patient got out of bed quickly and went towards the restroom, went in the restroom and came out two times before staying in the restroom, when he came out he looked around and went to his bed. This remote mortgage underwriter asked patient if he would like something for "feeling anxoius", patient states "I only want to take my Zyprexa", this wrtier reminded patient that we could get something to help him no feel so anxious, patient declined.
--- NOTE | 2021-02-18 16:39 | NUR ---
Patient sleeping on right side, moves around ofter possible just resting with eyes closed.
--- NOTE | 2021-02-18 17:47 | NUR ---
Patient supine in bed staring at the celling, making his need met. Patient continues to talk to the voices that are telling him he can't see his mom un til next year and that the guys out front are gonna come in and kill him. Patient is reminded that he is safe here.
--- NOTE | 2021-02-18 18:32 | NUR ---
assumend care, pt resting inbed.
[2021-02-18] MEDS: OLANZapine 5mg rapidly disint. tablet PO SCH (20:04)
--- NOTE | 2021-02-18 21:21 | NUR ---
Pt awoke and ate dinner and was med compliant. Pt layed back down and went to sleep.
--- NOTE | 2021-02-18 23:20 | NUR ---
Patient asleep in bed with out distress noted.
--- NOTE | 2021-02-19 02:13 | NUR ---
Patient asleep in bed with out distress noted.
--- NOTE | 2021-02-19 04:06 | NUR ---
Patient asleep in bed with out distress noted.
[2021-02-19 05:55] VITALS: BP 121/90
--- NOTE | 2021-02-19 07:03 | NUR ---
Patient is resting in bed supine, no signs of distress
--- NOTE | 2021-02-19 09:30 | NUR ---
Patient is resting on his left side side. Patient ate 75% of breakfast.
--- NOTE | 2021-02-19 13:49 | NUR ---
Per [facility] patient has been accepted at [place]. Transport time TBD
--- NOTE | 2021-02-19 15:46 | NUR ---
Patient resting in bed 21, asking for Ice Water and a [place] sandwich.
--- NOTE | 2021-02-19 15:48 | NUR ---
This wrtier informed patient that he will be transfered to [place] at 1615 via [facility]
== END 2021-02-19 16:57 ==
LOC: ER 13:12
DX: F20.0 Paranoid schizophrenia (principal); Z56.0 Unemployment, unspecified; Z20.822 Contact with and (suspected) exposure to COVID-19
CPT/HCPCS: 36415; 80053; 80305; 80320; 81003; 84443; 85025; 87635; 96372; 99285; C9803; J1200; J1630; J2060

== ENCOUNTER 2021-07-20 13:42 | Emergency (ER) | payer MEDICARE, MEDICAID ==
[~2021-07-20] VITALS: Ht 172.7 cm; Wt 81.4 kg
[2021-07-20 13:50] VITALS: BP 131/77
[2021-07-20] MEDS ORDERED: cephalexin 500mg capsule PO ONE (15:20)
[2021-07-20] MEDS ORDERED: sulfamethoxazole/trimethoprim DS (800/160mg) tablet PO ONE (15:20)
[2021-07-20] MEDS ORDERED: CEPH-585 PO (15:26)
--- NOTE | 2021-07-20 15:30 | NUR ---
dressing applied to wound. wound care education given. pt understood with return demo po med given
== END 2021-07-20 16:01 | disposition home or self-care (01) ==
LOC: ER 13:43
DX: S71.102A Unspecified open wound, left thigh, initial encounter (principal); F20.9 Schizophrenia, unspecified; Z91.19 Patient's noncompliance with other medical treatment and regimen; Z56.0 Unemployment, unspecified; Z79.2 Long term (current) use of antibiotics; Z79.899 Other long term (current) drug therapy; X58.XXXA Exposure to other specified factors, initial encounter; Y93.89 Activity, other specified; Y92.89 Other specified places as the place of occurrence of the external cause; Y99.8 Other external cause status
CPT/HCPCS: 99283

== ENCOUNTER 2021-07-24 12:28 | Emergency (ER) | payer MEDICAID, MEDICARE ==
[~2021-07-24] VITALS: Ht 172.7 cm; Wt 81.4 kg
[~2021-07-24 12:28] MED LIST changes: +CEPH-585 PO
[2021-07-24] MEDS ORDERED: sulfamethoxazole/trimethoprim DS (800/160mg) tablet PO ONE (12:45)
[2021-07-24] MEDS ORDERED: CefTRIAXone 1000mg IM Kit (w/lidocaine diluent) IM ONE (12:45)
[2021-07-24] MEDS ORDERED: SULF1TAB49 PO (13:05)
== END 2021-07-24 13:47 | disposition home or self-care (01) ==
LOC: ER 12:29
DX: L03.116 Cellulitis of left lower limb (principal); F20.9 Schizophrenia, unspecified; Z56.0 Unemployment, unspecified
CPT/HCPCS: 96372; 99283; J0696; 90471

== ENCOUNTER 2021-07-26 17:57 | Emergency (ER) | payer MEDICAID, MEDICARE ==
[~2021-07-26] VITALS: Ht 172.7 cm; Wt 81.4 kg
[~2021-07-26 17:57] MED LIST changes: +SULF1TAB49 PO
[2021-07-26] MEDS: gentamicin 0.1% topical ointment 15gm TP SCH ×3 (20:35→22:25)
[2021-07-26] MEDS ORDERED: LIDOcaine 4% (40 mg/ml) topical solution 50ml TP ONE ×3 (20:35→21:15)
[2021-07-26] MEDS ORDERED: cephalexin 500mg capsule PO ONE (22:00)
[2021-07-26] MEDS ORDERED: sulfamethoxazole/trimethoprim DS (800/160mg) tablet PO ONE (22:00)
[2021-07-26 22:25] VITALS: BP 129/67
== END 2021-07-26 22:30 | disposition home or self-care (01) ==
LOC: ER 17:57
DX: S71.002A Unspecified open wound, left hip, initial encounter (principal); L03.317 Cellulitis of buttock; L98.498 Non-pressure chronic ulcer of skin of other sites with other specified severity; Z79.2 Long term (current) use of antibiotics; Z79.899 Other long term (current) drug therapy; Z87.891 Personal history of nicotine dependence; F12.90 Cannabis use, unspecified, uncomplicated; Z56.0 Unemployment, unspecified; X58.XXXA Exposure to other specified factors, initial encounter; Y93.89 Activity, other specified; Y92.89 Other specified places as the place of occurrence of the external cause; Y99.8 Other external cause status
CPT/HCPCS: 97597; 99283; 99285

== ENCOUNTER 2021-08-06 23:03 | Emergency (ER) | payer MEDICAID, MEDICARE ==
[~2021-08-06] VITALS: Ht 172.7 cm; Wt 81.4 kg
[~2021-08-06 23:03] MED LIST changes: -SULF1TAB49 PO
== END 2021-08-06 23:39 | disposition home or self-care (01) ==
LOC: ER 23:04
DX: T16.1XXA Foreign body in right ear, initial encounter (principal); F20.9 Schizophrenia, unspecified; F12.90 Cannabis use, unspecified, uncomplicated; Z72.89 Other problems related to lifestyle; Z56.0 Unemployment, unspecified; Z88.6 Allergy status to analgesic agent; Z88.8 Allergy status to other drugs, medicaments and biological substances; Z79.2 Long term (current) use of antibiotics; Z79.899 Other long term (current) drug therapy; X58.XXXA Exposure to other specified factors, initial encounter; Y93.89 Activity, other specified; Y92.89 Other specified places as the place of occurrence of the external cause; Y99.8 Other external cause status
CPT/HCPCS: 69200; 99284

== ENCOUNTER 2021-08-17 14:47 | Emergency (ER) | payer MEDICAID ==
[~2021-08-17] VITALS: Ht 172.7 cm; Wt 81.0 kg
[2021-08-17 14:55] VITALS: BP 101/74
== END 2021-08-17 15:57 | disposition home or self-care (01) ==
LOC: ER 14:47
DX: F20.9 Schizophrenia, unspecified (principal); F12.90 Cannabis use, unspecified, uncomplicated; Z56.0 Unemployment, unspecified; Z72.89 Other problems related to lifestyle; Z88.6 Allergy status to analgesic agent; Z88.5 Allergy status to narcotic agent; Z79.899 Other long term (current) drug therapy
CPT/HCPCS: 99283

== ENCOUNTER 2021-09-01 04:33 | Emergency (ER) | payer MEDICARE, MEDICAID ==
[~2021-09-01] VITALS: Ht 172.7 cm; Wt 68.6 kg
[2021-09-01 04:35] VITALS: BP 98/66
[2021-09-01] MEDS ORDERED: DOXYCYCLINE 100MG CAPSULE PO STA (06:38)
[2021-09-01] MEDS ORDERED: DOXY-411 PO (06:39)
== END 2021-09-01 06:59 | disposition home or self-care (01) ==
LOC: ER 04:34
DX: R21 Rash and other nonspecific skin eruption (principal); F20.9 Schizophrenia, unspecified; F12.10 Cannabis abuse, uncomplicated; Z59.00 Homelessness unspecified; Z88.6 Allergy status to analgesic agent; Z88.5 Allergy status to narcotic agent; Z79.899 Other long term (current) drug therapy; Z48.00 Encounter for change or removal of nonsurgical wound dressing
CPT/HCPCS: 99283

== ENCOUNTER 2021-09-10 06:20 | Emergency (ER) | payer MEDICAID ==
[~2021-09-10] VITALS: Ht 172.7 cm; Wt 67.1 kg
[2021-09-10 10:28] VITALS: BP 116/83
[2021-09-10] MEDS ORDERED: LIDOcaine 1% W/epiNEPHrine 1:100,000 20ml vial SQ ONE (10:40)
[2021-09-10] MEDS ORDERED: sulfamethoxazole/trimethoprim DS (800/160mg) tablet PO ONE (10:40)
[2021-09-10] MEDS ORDERED: SULF1TAB49 PO (11:09)
== END 2021-09-10 11:21 | disposition home or self-care (01) ==
LOC: ER 06:21
DX: L02.31 Cutaneous abscess of buttock (principal); F20.9 Schizophrenia, unspecified; F12.10 Cannabis abuse, uncomplicated; Z56.0 Unemployment, unspecified; Z88.6 Allergy status to analgesic agent; Z88.5 Allergy status to narcotic agent; Z79.899 Other long term (current) drug therapy; Z79.2 Long term (current) use of antibiotics
CPT/HCPCS: 10060; 99283; A6449

== ENCOUNTER → 2021-09-18 | Emergency (ER) | payer MEDICARE, MEDICAID ==
[~2021-09-18] VITALS: Ht 170.2 cm; Wt 86.0 kg
[~2021-09-18] MED LIST changes: +OLAN5TAB75 PO; +SULF1TAB49 PO
[2021-09-18 15:30] VITALS: BP 122/80
--- NOTE | 2021-09-18 15:38 | NUR ---
NOT IN LOBBY
== END | disposition left against medical advice (07) ==
LOC: ER 15:20
DX: Z00.8 Encounter for other general examination (principal); Z53.21 Procedure and treatment not carried out due to patient leaving prior to being seen by health care provider

== ENCOUNTER 2021-09-19 09:22 | Emergency (ER) | payer MEDICAID, MEDICARE ==
[~2021-09-19] VITALS: Ht 172.7 cm; Wt 81.4 kg
[~2021-09-19 09:22] MED LIST changes: -OLAN5TAB75 PO; -SULF1TAB49 PO
[2021-09-19 12:30] LABS: BASOPHILS % (AUTO) 0.6 % (0-1); EOSINOPHILS # (AUTO) 0.1 X10'3 (0-0.9); EOSINOPHILS % (AUTO) 1.5 % (0-6); HEMATOCRIT 38.3 % (42.0-52.0); LYMPHOCYTES # (AUTO) 0.7 X10'3 (1.1-4.8); LYMPHOCYTES % (AUTO) 16.2 % (21-51); MEAN CORPUSCULAR HEMOGLOBIN 28.7 PG (27.0-31.0); MEAN CORPUSCULAR HGB CONC 33.9 g/dL (33.0-36.5); MEAN CORPUSCULAR VOLUME 84.9 FL (78-98); MEAN PLATELET VOLUME 8.7 FL (7.4-10.4); MONOCYTES # (AUTO) 0.9 X10'3 (0-0.9); MONOCYTES % (AUTO) 20.4 % (2-12); NEUTROPHILS # (AUTO) 2.7 X10'3 (1.8-7.7); NEUTROPHILS % (AUTO) 61.3 % (42-75); PLATELET COUNT 291 X10'3 (140-440); RED BLOOD COUNT 4.51 X10'6 (4.70-6.10); RED CELL DISTRIBUTION WIDTH 13.6 % (11.5-14.5); WHITE BLOOD COUNT 4.4 X10'3 (4.5-11.0)
[2021-09-19 12:44] LABS: ALANINE AMINOTRANSFERASE 14 U/L (12-78); ALBUMIN/GLOBULIN RATIO 0.8 (1.1-1.5); ALKALINE PHOSPHATASE 51 IU/L (46-116); ANION GAP 8 (8-16); ASPARTATE AMINO TRANSFERASE 14 U/L (10-37); BILIRUBIN,TOTAL 0.2 MG/DL (0.1-1.0); BLOOD UREA NITROGEN 7 MG/DL (7-18); BUN/CREATININE RATIO 8.3 (5.4-32.0); CALCIUM 8.6 MG/DL (8.5-10.1); CHLORIDE 104 MMOL/L (99-107); CREATININE 0.84 MG/DL (0.60-1.10); GLUCOSE 83 MG/DL (70-104); POTASSIUM 3.4 MMOL/L (3.5-5.1); SODIUM 137 MMOL/L (135-145); TOTAL CARBON DIOXIDE 24.7 MMOL/L (24-32); TOTAL PROTEIN 6.9 G/DL (6.4-8.2); eGFR > 90 ML/MIN
[2021-09-19 12:51] LABS: ETHANOL < 0.010 GM/DL (0.0-0.010)
[2021-09-19] MEDS ORDERED: potassium Cl 20 mEq SR tablet PO ONE (13:40)
[2021-09-19] MEDS ORDERED: POTASSIUM BICARB 20meq eff tab 20 MEQ TABLET.EFF PO ONE (13:45)
[2021-09-19] MEDS ORDERED: OLAN5TAB75 PO (14:25)
[2021-09-19] MEDS ORDERED: OLANZapine 2.5MG tablet PO ONE (15:45)
--- NOTE | 2021-09-19 16:00 | NUR ---
The patient moved to 24 from the main ER. His med rec was completed. He was given zyprexa PO.
--- NOTE | 2021-09-19 16:16 | NUR ---
The patient is very psychotic and has been jumping out of bed suddenly and running to the sink and splashing water on his face and then running back to his bed.
--- NOTE | 2021-09-19 17:13 | NUR ---
The patient appears to be sleeping
--- NOTE | 2021-09-19 18:40 | NUR ---
Patient was up to void. A void urine sample was obtained. Patient returned to bed.
[2021-09-19 19:03] LABS: CLARITY,URINE CLEAR (Clear); COLOR,URINE YELLOW (Yellow); GLUCOSE, URINE NEGATIVE (Neg); KETONES,URINE NEGATIVE (Neg); LEUKOCYTE ESTERASE ,URINE NEGATIVE (Neg); NITRITES, URINE NEGATIVE (Neg); OCCULT BLOOD,URINE NEGATIVE (Neg); PROTEIN,URINE NEGATIVE (Neg); UROBILINOGEN,URINE 0.2 E.U/dL (0.2-1.0)
[2021-09-19 19:04] LABS: URINE AMPHETAMINE SCREEN NEGATIVE (Neg); URINE BARBITUATE SCREEN NEGATIVE (Neg); URINE BENZODIAZEPINES SCREEN NEGATIVE (Neg); URINE CANNABINOID SCREEN POSITIVE (Neg); URINE COCAINE SCREEN NEGATIVE (Neg); URINE METHADONE SCREEN NEGATIVE (Neg); URINE OPIATE SCREEN NEGATIVE (Neg); URINE PHENCYCLIDINE SCREEN NEGATIVE (Neg)
[2021-09-19 19:07] LABS: UA COLLECTION TYPE VOIDED
--- NOTE | 2021-09-19 20:07 | NUR ---
Patient vitals rechecked. Patient exhibits labile behavior. He returns to sleep.
--- NOTE | 2021-09-19 22:19 | NUR ---
Patient is sleeping quietly in a supine position.
--- NOTE | 2021-09-20 02:03 | NUR ---
This patient is sleeping on his right side. In view from nurses station.
--- NOTE | 2021-09-20 03:22 | NUR ---
Patient has self repositioned in bed. No distress.
--- NOTE | 2021-09-20 04:37 | NUR ---
Patient sleeping on his right side in bed.
--- NOTE | 2021-09-20 05:51 | NUR ---
Patient is up to the bathroom. Awaiting vital signs.
[2021-09-20] MEDS ORDERED: OLANZAPINE 5 MG TABLET PO ONE (06:10)
--- NOTE | 2021-09-20 06:32 | NUR ---
Patient exhibited anxiety and mild paranoia, he is more linear than last NOC. He speaks in a rapid rate and moderate tone. Dr. Smith rounded and on my request approved Zyprexa 15 mg PO. This was given, patient was cooperative.
--- NOTE | 2021-09-20 07:06 | NUR ---
Patient is now sleeping in a low fowlers position.
--- NOTE | 2021-09-20 09:00 | NUR ---
Patient is sleeping quietly, no distress.
--- NOTE | 2021-09-20 09:51 | NUR ---
Patient sleeps in a prone position. He has self repositioned.
--- NOTE | 2021-09-20 10:18 | NUR ---
Dima from [facility] called in regard to this patient. They desire to provide a bridge to assist this patient with detox PRN. They report a slot is open at [facility] at this time. This rewriter advised that the [facility] worker that interviews this patient would be advised. Dima's phone number is [phone]
--- NOTE | 2021-09-20 12:02 | NUR ---
Patient is sleeping quietly.
--- NOTE | 2021-09-20 13:37 | NUR ---
Nurse to nurse with Elina at [facility]. Acceptance is pending approval. Patient will require another negative covid test if patient is accepted as the previous test is greater than 24 hours.
--- NOTE | 2021-09-20 13:45 | NUR ---
Patient is sleeping quietly in a supine position.
--- NOTE | 2021-09-20 14:37 | NUR ---
Patient is accepted to [facility] pending a repeat negative Covid 19 test. Patient was swabed, lab [facility]. Accepting Doctor is Adelaide HERNANDEZ. Acceptance time is 1415 hours.
--- NOTE | 2021-09-20 16:17 | NUR ---
Another nurse to nurse was given to NIGEL Altamirano at [facility] in [place], [place]. Patient has been accepted at that facility.
--- NOTE | 2021-09-20 16:18 | NUR ---
Adarsh RN at [facility]. . They requested an updated ETA when transport begins.
[2021-09-20 17:30] VITALS: BP 98/63
[2021-09-20] MEDS ORDERED: OLANZAPINE 5 MG TABLET PO SCH (21:00)
== END 2021-09-20 17:35 ==
LOC: ER 09:23
DX: F20.9 Schizophrenia, unspecified (principal); Z20.822 Contact with and (suspected) exposure to COVID-19; F79 Unspecified intellectual disabilities; F12.10 Cannabis abuse, uncomplicated; Z88.6 Allergy status to analgesic agent; Z88.5 Allergy status to narcotic agent
CPT/HCPCS: 36415; 80053; 80305; 80320; 81003; 85025; 87811; 99285

== ENCOUNTER 2021-10-20 13:19 | Emergency (ER) | payer MEDICAID, MEDICARE ==
[~2021-10-20] VITALS: Ht 172.7 cm; Wt 81.4 kg
[~2021-10-20 13:19] MED LIST changes: -CEPH-585 PO; -OLAN5TAB3 PO; +OLAN5TAB75 PO
[2021-10-20 13:21] VITALS: BP 121/84
== END 2021-10-20 14:30 | disposition home or self-care (01) ==
LOC: ER 13:20
DX: R51.9 Headache, unspecified (principal); R09.89 Other specified symptoms and signs involving the circulatory and respiratory systems; F20.9 Schizophrenia, unspecified; Z56.0 Unemployment, unspecified; Z59.00 Homelessness unspecified; Z88.6 Allergy status to analgesic agent; Z88.5 Allergy status to narcotic agent; F12.10 Cannabis abuse, uncomplicated
CPT/HCPCS: 99281; 99283

== ENCOUNTER 2021-12-14 10:30 | Emergency (ER) | payer MEDICARE, MEDICAID ==
[~2021-12-14] VITALS: Ht 172.7 cm; Wt 81.4 kg
== END 2021-12-14 13:27 | disposition home or self-care (01) ==
LOC: ER 10:31
DX: Z00.8 Encounter for other general examination (principal); F20.9 Schizophrenia, unspecified; F12.10 Cannabis abuse, uncomplicated; Z59.00 Homelessness unspecified; Z56.0 Unemployment, unspecified; Z88.6 Allergy status to analgesic agent; Z88.5 Allergy status to narcotic agent; Z79.899 Other long term (current) drug therapy
CPT/HCPCS: 99281

== ENCOUNTER 2021-12-15 09:42 | Emergency (ER) | payer MEDICARE, MEDICAID ==
[~2021-12-15] VITALS: Ht 172.7 cm; Wt 81.0 kg
== END 2021-12-15 11:00 | disposition home or self-care (01) ==
LOC: ER 09:42
DX: F20.9 Schizophrenia, unspecified (principal); F17.200 Nicotine dependence, unspecified, uncomplicated; Z59.00 Homelessness unspecified; Z56.0 Unemployment, unspecified
CPT/HCPCS: 99283

== ENCOUNTER 2021-12-17 13:38 | Emergency (ER) | payer MEDICARE, MEDICAID ==
[~2021-12-17] VITALS: Ht 167.6 cm; Wt 68.2 kg
[2021-12-17 15:02] VITALS: BP 132/76
== END 2021-12-17 15:31 | disposition left against medical advice (07) ==
LOC: ER 13:39
DX: Z00.00 Encounter for general adult medical examination without abnormal findings (principal); Z53.21 Procedure and treatment not carried out due to patient leaving prior to being seen by health care provider

== ENCOUNTER 2021-12-17 18:05 | Emergency (ER) | payer MEDICARE, MEDICAID | END 2021-12-17 20:42 | disposition left against medical advice (07) | LOC: ER 18:05 | DX: Z00.00 Encounter for general adult medical examination without abnormal findings (principal); Z53.21 Procedure and treatment not carried out due to patient leaving prior to being seen by health care provider ==

== ENCOUNTER 2021-12-18 00:49 | Emergency (ER) | payer MEDICARE, MEDICAID ==
[~2021-12-18] VITALS: Ht 177.8 cm; Wt 81.4 kg
[2021-12-18 01:01] VITALS: BP 124/83
[2021-12-18] MEDS ORDERED: ketorolac trometh. 30mg/ml inj. IV ONE (05:30)
== END 2021-12-18 06:15 | disposition home or self-care (01) ==
LOC: ER 00:49
DX: R07.89 Other chest pain (principal); F12.90 Cannabis use, unspecified, uncomplicated; Z88.5 Allergy status to narcotic agent; Z88.6 Allergy status to analgesic agent; Z59.00 Homelessness unspecified; Z56.0 Unemployment, unspecified
CPT/HCPCS: 71045; 96374; 99284; J1885

== ENCOUNTER 2021-12-18 17:29 | Emergency (ER) | payer MEDICAID, MEDICARE ==
[~2021-12-18] VITALS: Ht 172.7 cm; Wt 81.4 kg
[2021-12-18 18:44] VITALS: BP 116/79
== END 2021-12-18 22:53 | disposition left against medical advice (07) ==
LOC: ER 17:29
DX: F20.9 Schizophrenia, unspecified (principal); Z88.5 Allergy status to narcotic agent; Z88.6 Allergy status to analgesic agent; Z56.0 Unemployment, unspecified; Z59.00 Homelessness unspecified
CPT/HCPCS: 99283

== ENCOUNTER 2022-02-13 00:23 | Emergency (ER) | payer MEDICARE, MEDICAID ==
[~2022-02-13] VITALS: Ht 172.7 cm; Wt 81.4 kg
[2022-02-13 00:47] VITALS: BP 129/96
[2022-02-13] MEDS ORDERED: haloperidol 5mg tablet PO ONE (03:45)
== END 2022-02-13 05:51 | disposition home or self-care (01) ==
LOC: ER 00:23
DX: F22 Delusional disorders (principal); F12.90 Cannabis use, unspecified, uncomplicated; Z88.5 Allergy status to narcotic agent; Z88.6 Allergy status to analgesic agent; Z59.00 Homelessness unspecified; Z56.0 Unemployment, unspecified
CPT/HCPCS: 99283

== ENCOUNTER 2022-02-16 08:07 | Emergency (ER) | payer MEDICARE, MEDICAID ==
[~2022-02-16] VITALS: Ht 172.7 cm; Wt 72.0 kg
[2022-02-16] MEDS ORDERED: cephalexin 500mg capsule PO ONE (09:40)
[2022-02-16] MEDS ORDERED: sulfamethoxazole/trimethoprim DS (800/160mg) tablet PO ONE (09:40)
[2022-02-16] MEDS ORDERED: gentamicin 0.1% topical ointment 15gm TP STA (09:40)
[2022-02-16] MEDS ORDERED: ibuprofen tablet 400 MG TABLET PO ONE (09:40)
[2022-02-16 10:11] LABS: BASOPHILS # (AUTO) 0.1 X10'3 (0-0.2); BASOPHILS % (AUTO) 0.6 % (0-1); EOSINOPHILS % (AUTO) 0.3 % (0-6); HEMOGLOBIN 14.4 g/dl (14.0-17.9); LYMPHOCYTES # (AUTO) 0.8 X10'3 (1.1-4.8); LYMPHOCYTES % (AUTO) 8.3 % (21-51); MEAN CORPUSCULAR HEMOGLOBIN 29.4 PG (27.0-31.0); MEAN CORPUSCULAR HGB CONC 33.6 g/dL (33.0-36.5); MEAN CORPUSCULAR VOLUME 87.5 FL (78-98); MEAN PLATELET VOLUME 7.4 FL (7.4-10.4); MONOCYTES # (AUTO) 1.3 X10'3 (0-0.9); NEUTROPHILS # (AUTO) 7.9 X10'3 (1.8-7.7); NEUTROPHILS % (AUTO) 77.8 % (42-75); PLATELET COUNT 499 X10'3 (140-440); RED BLOOD COUNT 4.91 X10'6 (4.70-6.10); WHITE BLOOD COUNT 10.2 X10'3 (4.5-11.0)
[2022-02-16 10:32] LABS: ALANINE AMINOTRANSFERASE 15 U/L (12-78); ALBUMIN 3.5 G/DL (3.4-5.0); ALBUMIN/GLOBULIN RATIO 0.8 (1.1-1.5); ALKALINE PHOSPHATASE 54 IU/L (46-116); ANION GAP 10 (8-16); ASPARTATE AMINO TRANSFERASE 25 U/L (10-37); BILIRUBIN,TOTAL 0.4 MG/DL (0.1-1.0); BLOOD UREA NITROGEN 9 MG/DL (7-18); BUN/CREATININE RATIO 7.1 (5.4-32.0); CALCIUM 9.4 MG/DL (8.5-10.1); CHLORIDE 96 MMOL/L (99-107); CREATININE 1.26 MG/DL (0.60-1.10); GLUCOSE 100 MG/DL (70-104); POTASSIUM 3.4 MMOL/L (3.5-5.1); SODIUM 134 MMOL/L (135-145); TOTAL CARBON DIOXIDE 28.2 MMOL/L (24-32); TOTAL PROTEIN 8.1 G/DL (6.4-8.2); eGFR 62 ML/MIN
[2022-02-16 11:01] LABS: CLARITY,URINE CLEAR (Clear); COLOR,URINE YELLOW (Yellow); GLUCOSE, URINE NEGATIVE (Neg); KETONES,URINE NEGATIVE (Neg); LEUKOCYTE ESTERASE ,URINE NEGATIVE (Neg); NITRITES, URINE NEGATIVE (Neg); OCCULT BLOOD,URINE TRACE-INTACT (Neg); PH,URINE 6.5 (4.8-8.0); PROTEIN,URINE NEGATIVE (Neg); UROBILINOGEN,URINE 0.2 E.U/dL (0.2-1.0)
[2022-02-16 11:06] LABS: UA COLLECTION TYPE CLN CATCH MIDSTREAM
[2022-02-16 11:07] LABS: BACTERIA,URINE NONE SEEN /HPF (Neg); MUCUS STRANDS NONE SEEN /LPF (Neg); RBC,URINE NONE SEEN /HPF (0-2); SQUAMOUS EPITHELIAL CELL,UR FEW /LPF (FEW); WBC,URINE 0-4 /HPF (0-4)
[2022-02-16 11:14] LABS: URINE AMPHETAMINE SCREEN NEGATIVE (Neg); URINE BARBITUATE SCREEN NEGATIVE (Neg); URINE BENZODIAZEPINES SCREEN NEGATIVE (Neg); URINE CANNABINOID SCREEN POSITIVE (Neg); URINE COCAINE SCREEN NEGATIVE (Neg); URINE METHADONE SCREEN NEGATIVE (Neg); URINE OPIATE SCREEN NEGATIVE (Neg); URINE PHENCYCLIDINE SCREEN NEGATIVE (Neg)
--- NOTE | 2022-02-16 11:28 | NUR ---
packet faxed to [facility]
--- NOTE | 2022-02-16 13:10 | NUR ---
Patient walked over from the Main ED, room 8, to ED Overflow bed 22. No distress observed. Patient is very psychotic. Patient denies suicidal ideation. Patient is malodorous and disheveled. Patient is calm and in bed. Continue to monitor.
--- NOTE | 2022-02-16 14:06 | NUR ---
Patient ambulatory to BR, steady/fast gait. Continue to monitor.
--- NOTE | 2022-02-16 14:56 | NUR ---
Patient appears to be sleeping supine. Patient offered ear plugs due to another very loud patient but refused. Continue to monitor.
--- NOTE | 2022-02-16 16:50 | NUR ---
Patient sleeping supine in bed. No distress observed. Continue to monitor.
--- NOTE | 2022-02-16 18:30 | NUR ---
Patient eating dinner. No distress observed. Continue to monitor.
--- NOTE | 2022-02-16 18:45 | NUR ---
Pt sitting in bed eating dinner at change of shift. Pt is quiet and cooperative. Pt states he is here because of a fever, pts temp is 98.4. Pt finished dinner and brushed his teeth.
[2022-02-16] MEDS: OLANZAPINE 5 MG TABLET PO SCH (20:18)
--- NOTE | 2022-02-16 21:00 | NUR ---
pt laying on his right side asleep. RR even and unlabored
--- NOTE | 2022-02-16 22:56 | NUR ---
Pt is laying in bed on his left side appears to be asleep rr even and unlabored.
--- NOTE | 2022-02-17 00:24 | NUR ---
pt laying on his left side appears to be sleeping rr even and unlabored.
--- NOTE | 2022-02-17 02:36 | NUR ---
pt up to use the bathroom, requested more water and went back to bed.
--- NOTE | 2022-02-17 04:42 | NUR ---
pt laying on his left side asleep no s/s distress
--- NOTE | 2022-02-17 07:00 | NUR ---
Patient resting comfortably on left side, respirations even and unlabored.
--- NOTE | 2022-02-17 08:49 | NUR ---
Pt called documentation writer to his bed saying "I need medication for my butt." Pt c/o of a pressure type pain 10/16. Noted pt has multiple pustules on both buttock cheeks. Pt has a quarter size open wound under right buttock, noted some yellow discharge. Dr. Bnod notifed, she states she will come over and assess.
--- NOTE | 2022-02-17 08:58 | NUR ---
One on one with patient to assess mental health. Pt states the reason he came to the ER was because of "what was on my butt." Pt denies SI/HI/A/VH. Pt states "they told me nothing was there, they lied to me." Pt is calm and cooperative. Pt is touching the pustules then touching his face and his arms. Pt then states "I'm afraid it will get on my face." Educated and reinforced the importance of keeping hands off suspected infection and the importance of hand washing. Pt was made aware of where the bathroom.
--- NOTE | 2022-02-17 09:55 | NUR ---
Wound care at bedside.
[2022-02-17] MEDS ORDERED: sulfamethoxazole/trimethoprim DS (800/160mg) tablet PO ONE (11:15)
[2022-02-17] MEDS ORDERED: cephalexin 500mg capsule PO ONE (11:15)
--- NOTE | 2022-02-17 11:45 | NUR ---
PATIENT UP TO BATHROOM. BEFORE LYING DOWN HE ASKED FOR CLEAN SHEETS. PT CHANGED BEDDING.
[2022-02-17] MEDS: lactobacillus rhamnosus 10,000 MMU CELLS/CAPSULE PO SCH ×2 (11:49→20:08)
--- NOTE | 2022-02-17 12:45 | NUR ---
Pt ambulates to the bathroom, walking quickly as this seems to be his speed. Noted pt stopped and used hand outside dealer sales representative before going in. Then heard multiple toilet flushes before clinical writer knockied on door, pt states "I'm just cleaning up." Pt finished then rapidly walked back to his bed. Pt appears to be responding to internal stimuli.
--- NOTE | 2022-02-17 13:42 | NUR ---
Pt lying on his bed talking to himself. Pt has requested several pitchers of water. Last count pt was at five pitchers. Will continue to monitor.
--- NOTE | 2022-02-17 14:09 | NUR ---
Pt up to the bathroom again, walking rapidly, stopping to use hand development planner, flushing toilet several times. Pt appears to be less anxious as the unit has quited down. A fellow patient was yelling most of the morning, but has now calmed down.
--- NOTE | 2022-02-17 16:02 | NUR ---
Pt resting comfortablyon left side, respirations even and unlabored.
--- NOTE | 2022-02-17 16:52 | NUR ---
COPY OF WOUND CARE ORDERS IN FRONT OF CHART. GENTAMICIN IN PT SPECIFIC BIN. WOUND CARE SUPPLIES WITH CHART.
--- NOTE | 2022-02-17 16:56 | NUR ---
MOTHER Catrachita JOHNS CELL NUMBER [phone].
--- NOTE | 2022-02-17 18:06 | NUR ---
Pt was was asking about a shower. Patient was given warm Ready Bath clothes to clean himself.
--- NOTE | 2022-02-17 18:45 | NUR ---
Assumed care of patient. 100% of dinner consumed. Patient now lying in bed, awake.
[2022-02-17] MEDS: OLANZAPINE 5 MG TABLET PO SCH (20:09)
[2022-02-17] MEDS: cephalexin 500mg capsule PO SCH (20:10)
[2022-02-17] MEDS: sulfamethoxazole/trimethoprim DS (800/160mg) tablet PO SCH (20:10)
--- NOTE | 2022-02-17 20:18 | NUR ---
Patient remains very concerned about taking a shower. Offered him bath wipes, he refused. Educated patient on lack of facilities/resources in ED.
--- NOTE | 2022-02-17 21:37 | NUR ---
Patient returned from restroom, lying awake in bed.
--- NOTE | 2022-02-17 22:40 | NUR ---
Patient asleep in room.
--- NOTE | 2022-02-18 00:40 | NUR ---
Patient asleep in room.
--- NOTE | 2022-02-18 01:40 | NUR ---
Patient sleeping in bed. Bilat equal chest rise and fall. No needs at this time.
--- NOTE | 2022-02-18 02:40 | NUR ---
Patient remains asleep. No needs at this time.
--- NOTE | 2022-02-18 03:40 | NUR ---
Patient resting comfortably in bed. No needs at this time.
--- NOTE | 2022-02-18 06:14 | NUR ---
Assumed care of patient. Pt ambulated independently from ED #7 to OF #22. Pt calm/cooperative. Pt requested bathing clothes and clean socks, which were supplied.
[2022-02-18] MEDS: lactobacillus rhamnosus 10,000 MMU CELLS/CAPSULE PO SCH ×2 (08:06→20:38)
[2022-02-18] MEDS: sulfamethoxazole/trimethoprim DS (800/160mg) tablet PO SCH ×2 (08:06→20:38)
[2022-02-18] MEDS: cephalexin 500mg capsule PO SCH ×2 (08:07→20:38)
--- NOTE | 2022-02-18 08:09 | NUR ---
Patient sitting on side of bed eating breakfast. Pt was compliant with morning antibotics. Pt denies SI/HI/AVH, but at times appears to be responding to internal stiumuli AEB lying in bed talking to himself. Pt has been calm/cooperative.
--- NOTE | 2022-02-18 09:02 | NUR ---
Pt ate 100% of his breakfast. Pt is food focused, often asking for snacks. When given saltine crackers pt states "I can't those." But then is able to eat capri crackers. Pt asked what was for lunch, then said "I can't have noodles on my tray." Then repeats it. Pt lying quietly on his bed, respirations even and unlabored.
--- NOTE | 2022-02-18 11:04 | NUR ---
Pt resting comfortably on left side, respirations even and unlabored.
--- NOTE | 2022-02-18 12:00 | NUR ---
Wound on buttocks cleansed and dressed per wound care orders. Pt tolerated well.
--- NOTE | 2022-02-18 14:00 | NUR ---
Pt resting comfortably on left side, pt asked for capri crackers. Numerical Control Router Operator has faxed down to dietary.
--- NOTE | 2022-02-18 17:00 | NUR ---
Pt resting comfortably, respirations even and unlabored.
--- NOTE | 2022-02-18 17:47 | NUR ---
Pt. refused vitals
--- NOTE | 2022-02-18 19:11 | NUR ---
Yolanda KNIGHT made aware that the patient is reporting pain in the buttocks area and orders received.
[2022-02-18] MEDS: ibuprofen tablet 400 MG TABLET PO PRN (19:28)
--- NOTE | 2022-02-18 19:52 | NUR ---
One to one with the patient. He is drinking large amounts of water. When asked why he was here he stated, "I got these brown recluse spiders on me" He stated that he has been living in a tent. He was asked how his mood was he stated, "It's getting better" He is guarded. He denies A/V hallucinations. He is very disheveled.
[2022-02-18] MEDS: OLANZAPINE 5 MG TABLET PO SCH (20:38)
--- NOTE | 2022-02-18 20:48 | NUR ---
The patient is polite and cooperative with nursing staff. He took his evening medications.
--- NOTE | 2022-02-18 21:34 | NUR ---
The patient appears to be sleeping
--- NOTE | 2022-02-18 23:38 | NUR ---
The patient appears to be sleeping but is restless
--- NOTE | 2022-02-19 01:25 | NUR ---
The patient appears to be sleeping but remains restless
--- NOTE | 2022-02-19 03:09 | NUR ---
The patient appears to be sleeping
--- NOTE | 2022-02-19 05:13 | NUR ---
The patient appears to be sleeping.
--- NOTE | 2022-02-19 07:00 | NUR ---
Pt appears to be sleeping comfortably, no restless movements. Respirations even and unlabored.
--- NOTE | 2022-02-19 08:30 | NUR ---
PT FINISHED BREAKFAST TRAY
--- NOTE | 2022-02-19 09:00 | NUR ---
Pt finished breakfast and is lying on his bed with eyes open. Pt asked for a spoon to finish his oatmeal. Pt is food focused.
[2022-02-19] MEDS: sulfamethoxazole/trimethoprim DS (800/160mg) tablet PO SCH ×2 (10:21→20:01)
[2022-02-19] MEDS: cephalexin 500mg capsule PO SCH ×2 (10:21→20:01)
[2022-02-19] MEDS: lactobacillus rhamnosus 10,000 MMU CELLS/CAPSULE PO SCH ×2 (10:21→20:01)
--- NOTE | 2022-02-19 11:00 | NUR ---
One on one with patient to assess mood. Pt presents with a flat affect. Pt denies A/VH, however noted he occassionally will lay in his bed and respond to himself. Pt also denies SI/HI. When asked what goals he has pt states "to have three more kids and go to [employer]." Pt reports he has three living children "somewhere." A set of twins and then an older daughter. Pt wasn't able to give ages. Pt was given a warm shower cap and encouaged to comb out his hair. Pt's hair is matted. Pt was also given clean body wipes to wash himself down. Administrative Assistant Coordinator reinforced the importance of not itching his buttocks and to wash hands often.
--- NOTE | 2022-02-19 11:55 | NUR ---
Daily wound care performed to buttocks per orders. Noted increased erythema and induration. Requested Dr. Guy to reasses area.
--- NOTE | 2022-02-19 12:20 | NUR ---
Dr. Guy lanced area, no drainage noted. Continue with current PO antibiotics. Pt tolerated procedure well.
--- NOTE | 2022-02-19 13:15 | NUR ---
Pt asked HIGINIO Delgado clinician "Hey is it 1971 out there?"
--- NOTE | 2022-02-19 14:00 | NUR ---
Pt ambulated to the bathroom, noted multiple toilet flushings. He then ambulated back to his bed and pulled sheet up to his neck.
--- NOTE | 2022-02-19 16:42 | NUR ---
Pt lying in bed with sheet pulled over his head. Visible respirations noted, even and unlabored.
--- NOTE | 2022-02-19 17:48 | NUR ---
Pt. politely refused vitals
--- NOTE | 2022-02-19 19:00 | NUR ---
The patient is isolative to his bed. He is asking for water frequently and excessive water intake risks discussed with the patient. The patient responded, "My brother told me to drink 13 gallons of water a day" The patient denies voices but his insight is poor. He reports getting messeages from his family members here in the hospital and they make recommendations and comments on his day to day activities. "I heard my dad when I was eating my salad. He said that it looked good and I shouldn't waste it" He makes frequent references of getting messages from his mother as well and when asked when was the last time he stated, "same thing. Double dragon game" The patient is very disheveled. He is disorganized.
[2022-02-19] MEDS: OLANZAPINE 5 MG TABLET PO SCH (20:01)
[2022-02-19] MEDS: ibuprofen tablet 400 MG TABLET PO PRN (20:01)
--- NOTE | 2022-02-19 20:10 | NUR ---
The patient is resting on his bed. He took his evening medications without incident.
--- NOTE | 2022-02-19 21:58 | NUR ---
The patient appears to be sleeping but is restless
--- NOTE | 2022-02-20 00:01 | NUR ---
The patient appears to be sleeping
--- NOTE | 2022-02-20 02:02 | NUR ---
The patient was awake briefly asking for a snack. Snack was given and he appears to be back asleep
--- NOTE | 2022-02-20 04:05 | NUR ---
The patient appears to be sleeping
--- NOTE | 2022-02-20 05:41 | NUR ---
The patient appears to be asleep at this time.
--- NOTE | 2022-02-20 06:04 | NUR ---
pt refused vitals
--- NOTE | 2022-02-20 06:29 | NUR ---
PT SLEEPING AT THIS TIME,RR WNL ,WILL CONT TO MONITOR.
--- NOTE | 2022-02-20 07:58 | NUR ---
pt is awake and requesting for breakfast ,informed that it shd be here any min.
[2022-02-20] MEDS: lactobacillus rhamnosus 10,000 MMU CELLS/CAPSULE PO SCH ×2 (08:17→19:46)
[2022-02-20] MEDS: cephalexin 500mg capsule PO SCH ×2 (08:17→19:46)
[2022-02-20] MEDS: sulfamethoxazole/trimethoprim DS (800/160mg) tablet PO SCH ×2 (08:17→19:46)
--- NOTE | 2022-02-20 08:22 | NUR ---
pt eating his breakfast at this time ,medicated the pt ,informed that once he is done eating will do the dressing.
--- NOTE | 2022-02-20 08:26 | NUR ---
pt asked the sports writer,"Is it snowing yet."
--- NOTE | 2022-02-20 08:47 | NUR ---
WOUND CLEANED ,OINTNMENT APPLIED ,DRESSED THE WOUND WITH TODAY'S DATE AND TIME PER THE WRITTEN WOUND CARE ORDERS.
--- NOTE | 2022-02-20 11:33 | NUR ---
wound care nurse here to do dressing change and measure the wound.
--- NOTE | 2022-02-20 11:42 | NUR ---
received call from [facility] for possible transfer ,informed that pt has open wound ,as per [facility] that they can't accept the pt due to wound care.
--- NOTE | 2022-02-20 12:02 | NUR ---
up to use restroom.
--- NOTE | 2022-02-20 14:05 | NUR ---
pt requesting for new scrubs.
--- NOTE | 2022-02-20 16:55 | NUR ---
PT IS UP AND DOWN THE HALLWAY ASKING FOR SNACKS AND CLOTHES EVERY 20-30 MINS.
--- NOTE | 2022-02-20 17:10 | NUR ---
PT RESTING IN BED AT THIS TIME.
[2022-02-20] MEDS: OLANZAPINE 5 MG TABLET PO SCH (19:48)
--- NOTE | 2022-02-20 22:22 | NUR ---
PT SLEEPING ON HIS LFT SIDE ,NO DISTRESS NOTED ,RR WNL ,WILL CONT TO MONITOR.
--- NOTE | 2022-02-20 23:19 | NUR ---
PT SLEEPING ,NO DISTRESS NOTED.WILL CONT TO MONITOR.
--- NOTE | 2022-02-21 01:00 | NUR ---
SLEEPING QUIETLY,NO DISTRESS NOTED,WILL CONT TO MONITOR.
--- NOTE | 2022-02-21 02:24 | NUR ---
SLEEPING AT THIS TIME ,NO DISTRESS NOTED.
--- NOTE | 2022-02-21 02:30 | NUR ---
PT UP TO USE RESTROOM.
--- NOTE | 2022-02-21 02:44 | NUR ---
BREAKING PRIMARY RN,PT IS SLEEPING ON HIS LEFT SIDE, REGULAR BREATHING IS APPARENT
--- NOTE | 2022-02-21 03:45 | NUR ---
PT RESTING IN BED QUIETLY ,WILL CONT TO MONITOR.
--- NOTE | 2022-02-21 06:04 | NUR ---
PT SLEEPING AT THIS TIME .RR WNL.WILL CONT TO MONITOR.
[2022-02-21] MEDS: lactobacillus rhamnosus 10,000 MMU CELLS/CAPSULE PO SCH ×2 (09:09→19:46)
[2022-02-21] MEDS: cephalexin 500mg capsule PO SCH ×2 (09:09→19:46)
[2022-02-21] MEDS: sulfamethoxazole/trimethoprim DS (800/160mg) tablet PO SCH ×2 (09:09→19:46)
--- NOTE | 2022-02-21 12:16 | NUR ---
SITTING ON EDGE OF BED EATING LUNCH, AMBULATED TO BATHROOM WITH STEADY GAIT.
--- NOTE | 2022-02-21 16:10 | NUR ---
PATIENT RESTING QUIETLY. NO DISTRESS NOTED.
[2022-02-21] MEDS: OLANZAPINE 5 MG TABLET PO SCH (21:12)
--- NOTE | 2022-02-22 00:43 | NUR ---
PT. SLEEPING QUIETLY WITHOUT APPARENT DISTRESS.
--- NOTE | 2022-02-22 01:33 | NUR ---
SLEEPING QUIETLY WITHOUT DISTRESS. WILL CONTINUE TO MONITOR.
--- NOTE | 2022-02-22 02:47 | NUR ---
No change in patient condition, sleeping quietly. Will continue to monitor.
--- NOTE | 2022-02-22 03:51 | NUR ---
No change in conditon, continues to sleep without distress. Will continue to monitor.
--- NOTE | 2022-02-22 04:43 | NUR ---
No change in condition, appears to be sleeping without distress. Will continue to monitor.
--- NOTE | 2022-02-22 05:48 | NUR ---
Continues to sleep without distress. Will continue to monitor.
--- NOTE | 2022-02-22 07:07 | NUR ---
Patient is sitting on the side of his bed quietly.
--- NOTE | 2022-02-22 08:06 | NUR ---
Patient is sleeping.
[2022-02-22] MEDS: lactobacillus rhamnosus 10,000 MMU CELLS/CAPSULE PO SCH ×2 (08:14→20:11)
[2022-02-22] MEDS: cephalexin 500mg capsule PO SCH (08:14)
[2022-02-22] MEDS: sulfamethoxazole/trimethoprim DS (800/160mg) tablet PO SCH ×2 (08:14→20:11)
--- NOTE | 2022-02-22 09:01 | NUR ---
Patient is using the bathroom.
--- NOTE | 2022-02-22 10:07 | NUR ---
Patient is sitting in bed quietly.
--- NOTE | 2022-02-22 11:04 | NUR ---
Patient is pacing in his room.
--- NOTE | 2022-02-22 14:02 | NUR ---
Patient is sitting quietly in his room.
--- NOTE | 2022-02-22 16:40 | NUR ---
Offered pt a snack.
--- NOTE | 2022-02-22 19:00 | NUR ---
The patient is resting on his bed. He is pleasant when approached but appears very disheveled and is mildly disorganized.
[2022-02-22] MEDS: OLANZAPINE 5 MG TABLET PO SCH (20:11)
--- NOTE | 2022-02-22 21:10 | NUR ---
The patient stated that his goal is to get to the [place] but it was unclear why he was trying to get there. He stated that [facility] When asked if he was continuing to get messages from his mother or brother he stated "No I just lay there and I talk to her. I don't even have to call her" He is very disheveled but is cleaning himself with disposable wash clothes periodically.
--- NOTE | 2022-02-22 22:36 | NUR ---
The patient appears to be sleeping
--- NOTE | 2022-02-23 00:13 | NUR ---
The patient appears to be sleeping
--- NOTE | 2022-02-23 02:07 | NUR ---
The patient appears to be sleeping
--- NOTE | 2022-02-23 04:02 | NUR ---
The patient appears to be sleeping
--- NOTE | 2022-02-23 05:31 | NUR ---
THe patient appears to be sleeping
[2022-02-23] MEDS: sulfamethoxazole/trimethoprim DS (800/160mg) tablet PO SCH ×2 (08:18→19:50)
[2022-02-23] MEDS: lactobacillus rhamnosus 10,000 MMU CELLS/CAPSULE PO SCH ×2 (08:18→19:50)
--- NOTE | 2022-02-23 16:47 | NUR ---
PATIENT AWAKE AND WATCH TV. NO COMPLAINTS AT THIS TIME.
--- NOTE | 2022-02-23 19:00 | NUR ---
The patient has been resting on his bed after eating almost all of his dinner. He is pleasant.
--- NOTE | 2022-02-23 20:01 | NUR ---
The patient has been pleasant and friendly with staff. He continues to make delusional statements that are disorganzied and difficult to follow. He stated that he had been talking with his daughter and stated that he had "11 daughters 12 or 13. Melissa said by the time I'm done I'll have 24" He is unable to formulate a realistic plan for food, intermediate or clothing if he were to leave the hospital.
[2022-02-23] MEDS: OLANZAPINE 5 MG TABLET PO SCH (20:04)
--- NOTE | 2022-02-23 21:06 | NUR ---
The patient appears to be sleeping
--- NOTE | 2022-02-23 22:49 | NUR ---
The patient appears to be sleeping
--- NOTE | 2022-02-24 00:13 | NUR ---
The patient appears to be sleeping
--- NOTE | 2022-02-24 02:03 | NUR ---
The patient appears to be sleeping
--- NOTE | 2022-02-24 04:34 | NUR ---
The patient appears to be sleeping
--- NOTE | 2022-02-24 05:14 | NUR ---
The patient up to use the bathroom and is now back in bed
[2022-02-24] MEDS: lactobacillus rhamnosus 10,000 MMU CELLS/CAPSULE PO SCH ×2 (08:27→20:13)
[2022-02-24] MEDS: sulfamethoxazole/trimethoprim DS (800/160mg) tablet PO SCH ×2 (08:27→20:13)
--- NOTE | 2022-02-24 08:32 | NUR ---
PATIENT ATE BREAKFAST AND IS RESTING QUIETLY IN BED. NO COMPLAINTS AT THIS TIME.
--- NOTE | 2022-02-24 15:51 | NUR ---
Reviewed YARD JACKER documentation by Gladis Lainez 02/18/2022. Lisa Shipley RN
--- NOTE | 2022-02-24 15:52 | NUR ---
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 Lisa Shipley RN
--- NOTE | 2022-02-24 15:52 | NUR ---
Reviewed [employer]ST[employer] M[employer] documentation by antoinette Lainez 02/24/2022. Lisa Shipley, RN
[2022-02-24] MEDS: OLANZAPINE 5 MG TABLET PO SCH (21:01)
--- NOTE | 2022-02-25 06:45 | NUR ---
Patient laying in bed awake. No distress observed. Continue to monitor.
--- NOTE | 2022-02-25 08:17 | NUR ---
Patient eating breakfast. No distress observed. Continue to monitor.
[2022-02-25] MEDS: lactobacillus rhamnosus 10,000 MMU CELLS/CAPSULE PO SCH ×2 (08:59→20:37)
[2022-02-25] MEDS: sulfamethoxazole/trimethoprim DS (800/160mg) tablet PO SCH ×2 (08:59→20:37)
--- NOTE | 2022-02-25 09:20 | NUR ---
Marya SYLVESTER, evaluating patient. Continue to monitor.
--- NOTE | 2022-02-25 10:03 | NUR ---
Patient watching T.V. No distress observed. Continue to monitor.
--- NOTE | 2022-02-25 12:09 | NUR ---
Patient eating lunch. No distress observed. Continue to monitor.
--- NOTE | 2022-02-25 14:07 | NUR ---
Patient continues to watch T.V. No distress observed. Continue to monitor.
--- NOTE | 2022-02-25 19:32 | NUR ---
The patient has been friendly and cooperative with staff. He is attending to his ADLs independently. 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 and then go up to [place]. When asked how he would get there he stated "a miracle"
[2022-02-25] MEDS: OLANZAPINE 5 MG TABLET PO SCH (20:37)
--- NOTE | 2022-02-25 20:44 | NUR ---
The patient appears to be sleeping
--- NOTE | 2022-02-25 22:05 | NUR ---
The patient appears to be sleeping
--- NOTE | 2022-02-26 00:28 | NUR ---
The patient appears to be sleeping
--- NOTE | 2022-02-26 01:57 | NUR ---
The patient appears to be sleeping
--- NOTE | 2022-02-26 04:07 | NUR ---
The patient appears to be sleeping
--- NOTE | 2022-02-26 05:23 | NUR ---
The patient appears to have slept well during the night. He is currently awake and asking that if he is discharged if he could have a note for the [facility] making them aware he was in the hospital.
[2022-02-26 06:05] VITALS: BP 121/80
[2022-02-26] MEDS: sulfamethoxazole/trimethoprim DS (800/160mg) tablet PO SCH (09:09)
[2022-02-26] MEDS: lactobacillus rhamnosus 10,000 MMU CELLS/CAPSULE PO SCH (09:09)
--- NOTE | 2022-02-26 17:04 | NUR ---
[facility] came and evaluated patient. Patient's [id number] was rescinded, patient will be going to the [place] by taxi.
== END 2022-02-26 17:40 | disposition home or self-care (01) ==
LOC: ER 08:08
DX: L03.317 Cellulitis of buttock (principal); Z20.822 Contact with and (suspected) exposure to COVID-19; L89.313 Pressure ulcer of right buttock, stage 3; R50.9 Fever, unspecified; F20.9 Schizophrenia, unspecified; F12.90 Cannabis use, unspecified, uncomplicated; Z72.89 Other problems related to lifestyle; Z56.0 Unemployment, unspecified; Z88.6 Allergy status to analgesic agent; Z88.8 Allergy status to other drugs, medicaments and biological substances; Z59.00 Homelessness unspecified; Z79.899 Other long term (current) drug therapy
CPT/HCPCS: 36415; 80053; 80305; 81001; 85025; 87811; 99285; A4649; A6196; A6212; A6449

== ENCOUNTER 2022-06-02 11:50 | Emergency (ER) | payer MEDICAID ==
[~2022-06-02] VITALS: Ht 172.7 cm; Wt 81.0 kg
[2022-06-02 11:56] VITALS: BP 144/92
[2022-06-02] MEDS ORDERED: cephalexin 500mg capsule PO ONE (12:55)
[2022-06-02] MEDS ORDERED: bacitracin 15gm ointment TP ONE (12:55)
[2022-06-02] MEDS ORDERED: CEPH-268 PO (12:58)
[2022-06-03] MEDS ORDERED: SULF1TAB49 PO (09:10)
== END 2022-06-02 14:46 | disposition home or self-care (01) ==
LOC: ER 11:51
DX: L02.413 Cutaneous abscess of right upper limb (principal); F20.9 Schizophrenia, unspecified; F12.90 Cannabis use, unspecified, uncomplicated; Z59.00 Homelessness unspecified; Z56.0 Unemployment, unspecified; Z72.89 Other problems related to lifestyle; Z88.6 Allergy status to analgesic agent; Z88.5 Allergy status to narcotic agent; Z79.899 Other long term (current) drug therapy
CPT/HCPCS: 99283

== ENCOUNTER 2022-06-03 07:14 | Emergency (ER) | payer MEDICARE, MEDICAID ==
[~2022-06-03] VITALS: Ht 172.7 cm; Wt 81.4 kg
[~2022-06-03 07:14] MED LIST changes: +CEPH-268 PO
[2022-06-03 07:40] VITALS: BP 97/78
[2022-06-03] MEDS ORDERED: SULF1TAB49 PO (09:10)
[2022-06-03] MEDS ORDERED: bacitracin 15gm ointment TP ONE (09:10)
[2022-06-03] MEDS: sulfamethoxazole/trimethoprim DS (800/160mg) tablet PO ONE ×2 (09:14→09:21)
== END 2022-06-03 09:00 | disposition home or self-care (01) ==
LOC: ER 07:14
DX: L03.113 Cellulitis of right upper limb (principal); F12.90 Cannabis use, unspecified, uncomplicated; Z88.6 Allergy status to analgesic agent; Z88.5 Allergy status to narcotic agent; Z59.00 Homelessness unspecified; Z56.0 Unemployment, unspecified
CPT/HCPCS: 99283

== ENCOUNTER 2022-07-04 16:55 | Emergency (ER) | payer MEDICAID ==
[~2022-07-04] VITALS: Ht 172.7 cm; Wt 81.4 kg
[~2022-07-04 16:55] MED LIST changes: -CEPH-268 PO
[2022-07-04 18:06] VITALS: BP 128/92
--- NOTE | 2022-07-04 18:18 | NUR ---
Pt in FT1. Pt c/o an abscess on his R check x8 days. Drainage noted to area. . Pt educated to POC. Pt in agreement. Pending providers eval and treatment.
[2022-07-04] MEDS ORDERED: hydrocortisone 1% cream 28gm TP ONE (20:15)
[2022-07-04] MEDS ORDERED: mupirocin 2% ointment 22GM TP STA (20:15)
[2022-07-04] MEDS ORDERED: Permethrin Cream 60gm TP ONE (20:15)
[2022-07-04] MEDS ORDERED: cephalexin 500mg capsule PO ONE (20:15)
[2022-07-04] MEDS ORDERED: SULF1TAB49 PO (20:25)
--- NOTE | 2022-07-04 20:55 | NUR ---
[facility] CALLED FOR PATIENT TO GO TO [facility] ON [facility].
[2022-07-05] MEDS ORDERED: SULF1TAB49 PO (22:56)
== END 2022-07-04 20:46 | disposition home or self-care (01) ==
LOC: ER 16:57
DX: L02.31 Cutaneous abscess of buttock (principal); R21 Rash and other nonspecific skin eruption; L29.9 Pruritus, unspecified; F20.9 Schizophrenia, unspecified; F12.10 Cannabis abuse, uncomplicated; Z59.00 Homelessness unspecified; Z56.0 Unemployment, unspecified; Z88.6 Allergy status to analgesic agent; Z88.5 Allergy status to narcotic agent
CPT/HCPCS: 99284

== ENCOUNTER 2022-07-05 05:50 | Emergency (ER) | payer MEDICAID ==
[~2022-07-05 05:50] MED LIST changes: +SULF1TAB49 PO
[2022-07-05] MEDS ORDERED: SULF1TAB49 PO (22:56)
== END 2022-07-05 05:58 | disposition left against medical advice (07) ==
LOC: ER 05:52
DX: L23.7 Allergic contact dermatitis due to plants, except food (principal); Z53.21 Procedure and treatment not carried out due to patient leaving prior to being seen by health care provider

== ENCOUNTER 2022-07-05 20:09 | Emergency (ER) | payer MEDICAID ==
[~2022-07-05] VITALS: Ht 172.7 cm; Wt 81.4 kg
[2022-07-05 20:17] VITALS: BP 133/98
[2022-07-05] MEDS ORDERED: SULF1TAB49 PO (22:56)
[2022-07-05] MEDS ORDERED: sulfamethoxazole/trimethoprim DS (800/160mg) tablet PO ONE (23:25)
--- NOTE | 2022-07-05 23:37 | NUR ---
PT REFUSED ALL ASSESSMENTS AND VITALS DURING VISIT.
== END 2022-07-05 23:38 | disposition home or self-care (01) ==
LOC: ER 20:10
DX: L03.317 Cellulitis of buttock (principal); F20.9 Schizophrenia, unspecified; F12.90 Cannabis use, unspecified, uncomplicated; Z59.00 Homelessness unspecified; Z56.0 Unemployment, unspecified; Z72.89 Other problems related to lifestyle; Z88.6 Allergy status to analgesic agent; Z88.5 Allergy status to narcotic agent; Z79.899 Other long term (current) drug therapy
CPT/HCPCS: 99283

== ENCOUNTER 2022-07-07 05:19 | Emergency (ER) | payer MEDICAID ==
[~2022-07-07] VITALS: Ht 172.7 cm; Wt 67.6 kg
[2022-07-07 05:27] VITALS: BP 127/77
== END 2022-07-07 07:50 | disposition home or self-care (01) ==
LOC: ER 05:20
DX: F22 Delusional disorders (principal); R51.9 Headache, unspecified; F20.9 Schizophrenia, unspecified; F12.90 Cannabis use, unspecified, uncomplicated; Z56.0 Unemployment, unspecified; Z88.6 Allergy status to analgesic agent; Z59.00 Homelessness unspecified; Z88.5 Allergy status to narcotic agent; Z79.899 Other long term (current) drug therapy
CPT/HCPCS: 99281

== ENCOUNTER 2022-07-07 17:25 | Emergency (ER) | payer MEDICAID | END 2022-07-07 17:55 | disposition home or self-care (01) | LOC: ER 17:25 | DX: F20.9 Schizophrenia, unspecified (principal); Z76.5 Malingerer [conscious simulation]; M25.552 Pain in left hip; F12.90 Cannabis use, unspecified, uncomplicated; Z59.00 Homelessness unspecified; Z56.0 Unemployment, unspecified; Z72.89 Other problems related to lifestyle; Z79.899 Other long term (current) drug therapy | CPT/HCPCS: 99283 ==

== ENCOUNTER 2022-12-27 12:08 | Emergency (ER) | payer MEDICAID ==
[~2022-12-27] VITALS: Ht 172.7 cm; Wt 66.8 kg
[~2022-12-27 12:08] MED LIST changes: +OLAN15TA3 PO; -SULF1TAB49 PO; +ZIPR20CA2 PO
[2022-12-27 12:16] VITALS: BP 137/99; PULSE 69; RESP 16; TEMP 98.7; O2SAT 96
[2022-12-27] MEDS ORDERED: SULF1TAB49 PO (13:54)
[2022-12-27] MEDS ORDERED: CEPH-585 PO (13:54)
== END 2022-12-27 14:11 | disposition home or self-care (01) ==
LOC: ER 12:08
DX: L03.116 Cellulitis of left lower limb (principal); F20.9 Schizophrenia, unspecified; F12.90 Cannabis use, unspecified, uncomplicated; Z59.00 Homelessness unspecified; Z56.0 Unemployment, unspecified; Z88.6 Allergy status to analgesic agent; Z88.5 Allergy status to narcotic agent; Z79.899 Other long term (current) drug therapy
CPT/HCPCS: 99283

== ENCOUNTER 2022-12-29 09:15 | Emergency (ER) | payer MEDICARE, MEDICAID ==
[~2022-12-29] VITALS: Ht 172.7 cm; Wt 65.6 kg
[~2022-12-29 09:15] MED LIST changes: +CEPH-585 PO; +SULF1TAB49 PO
[2022-12-29 11:30] VITALS: BP 144/78; PULSE 102; RESP 16; TEMP 97.8; O2SAT 99
== END 2022-12-29 11:30 | disposition home or self-care (01) ==
LOC: ER 09:16
DX: L03.112 Cellulitis of left axilla (principal); F20.9 Schizophrenia, unspecified; F12.10 Cannabis abuse, uncomplicated; Z88.6 Allergy status to analgesic agent; Z59.00 Homelessness unspecified; Z56.0 Unemployment, unspecified
CPT/HCPCS: 99281

== ENCOUNTER 2022-12-31 16:14 | Emergency (ER) | payer MEDICARE, MEDICAID ==
[~2022-12-31] VITALS: Ht 172.7 cm; Wt 81.4 kg
[2022-12-31 16:38] VITALS: BP 121/83; PULSE 82; TEMP 98.3; O2SAT 98
[2022-12-31 17:35] VITALS: RESP 22
--- NOTE | 2023-01-01 12:41 | NUR ---
PT. DOCUMENTATION COMPLETED BY CHEMIST W[employer] PURIFICATION HAS BEEN REVIEWED AND CONCUR WITH CHEMI[employer] W[employer] PURIFICATION.
== END 2022-12-31 19:09 | disposition home or self-care (01) ==
LOC: ER 16:15
DX: M79.602 Pain in left arm (principal); F20.9 Schizophrenia, unspecified; F12.10 Cannabis abuse, uncomplicated; Z88.6 Allergy status to analgesic agent; Z79.899 Other long term (current) drug therapy
CPT/HCPCS: 99281

== ENCOUNTER → 2023-01-08 | Emergency (ER) | payer MEDICAID, MEDICARE ==
[~2023-01-08] VITALS: Ht 172.7 cm; Wt 74.0 kg
[~2023-01-08] MED LIST changes: +PANT-47 PO
[2023-01-08 15:07] VITALS: BP 118/82; PULSE 60; TEMP 98.1; O2SAT 98
[2023-01-08 15:14] VITALS: RESP 18
--- NOTE | 2023-01-08 17:17 | NUR ---
I AGREE WITH THE ASSESSMENT PER Cleve YOUNG LVN.
== END | disposition home or self-care (01) ==
LOC: ER 15:02
DX: L02.512 Cutaneous abscess of left hand (principal); F20.9 Schizophrenia, unspecified
CPT/HCPCS: 99283

== ENCOUNTER 2023-01-16 09:04 | Emergency (ER) | payer MEDICAID ==
[~2023-01-16] VITALS: Ht 172.7 cm; Wt 67.8 kg
[~2023-01-16 09:04] MED LIST changes: -PANT-47 PO
[2023-01-16 09:12] VITALS: BP 129/99; PULSE 80; TEMP 98.5; O2SAT 100
[2023-01-16] MEDS ORDERED: PANT-47 PO (09:54)
[2023-01-16 10:35] VITALS: RESP 18
--- NOTE | 2023-01-16 11:00 | NUR ---
PT UNCOOPERATIVE WHEN ASKING QUESTIONS, IN ROOM SUCKING ON BANANA PEEL.
[2023-01-16 11:13] LABS: STREP A SCREEN NEGATIVE (Neg)
--- NOTE | 2023-01-16 11:29 | NUR ---
UNABLE TO UBTAIN VITAL SIGNS, PT UNCOOPERATIVE.
--- NOTE | 2023-01-16 14:00 | NUR ---
i agree with the assessment of Carrington Hein LVN
== END 2023-01-16 11:30 | disposition home or self-care (01) ==
LOC: ER 09:08
DX: J02.9 Acute pharyngitis, unspecified (principal); F12.90 Cannabis use, unspecified, uncomplicated; Z88.8 Allergy status to other drugs, medicaments and biological substances; Z79.2 Long term (current) use of antibiotics; Z79.899 Other long term (current) drug therapy
CPT/HCPCS: 87081; 87880; 99283

== ENCOUNTER 2023-03-05 09:35 | Emergency (ER) | payer MEDICAID ==
[~2023-03-05] VITALS: Ht 172.7 cm; Wt 81.4 kg
[~2023-03-05 09:35] MED LIST changes: +PANT-47 PO; -SULF1TAB49 PO
[2023-03-05 09:36] VITALS: BP 128/92; PULSE 96; RESP 16; TEMP 98; O2SAT 96
[2023-03-05] MEDS ORDERED: SODI30SP3 BOTHNARES (09:38)
[2023-03-05] MEDS ORDERED: GUAI120015 PO (09:38)
== END 2023-03-05 09:44 | disposition home or self-care (01) ==
LOC: ER 09:35
DX: R09.81 Nasal congestion (principal); F20.9 Schizophrenia, unspecified; Z88.6 Allergy status to analgesic agent; Z79.899 Other long term (current) drug therapy
CPT/HCPCS: 99282

== ENCOUNTER 2023-05-26 03:13 | Emergency (ER) | payer MEDICAID ==
[~2023-05-26] VITALS: Ht 172.7 cm; Wt 81.0 kg
[~2023-05-26 03:13] MED LIST changes: +GUAI120015 PO; +SODI30SP3 BOTHNARES
[2023-05-26 03:17] VITALS: BP 132/99; PULSE 84; RESP 16; TEMP 98; O2SAT 100
[2023-05-26] MEDS ORDERED: CLIN-97 PO (07:43)
== END 2023-05-26 08:24 | disposition home or self-care (01) ==
LOC: ER 03:13
DX: K02.9 Dental caries, unspecified (principal); K08.89 Other specified disorders of teeth and supporting structures; F12.90 Cannabis use, unspecified, uncomplicated; Z88.6 Allergy status to analgesic agent; Z88.5 Allergy status to narcotic agent; Z79.2 Long term (current) use of antibiotics; Z79.899 Other long term (current) drug therapy
CPT/HCPCS: 99283

== ENCOUNTER 2023-05-29 06:01 | Emergency (ER) | payer MEDICAID ==
[~2023-05-29 06:01] MED LIST changes: +CLIN-97 PO
== END 2023-05-29 07:08 | disposition left against medical advice (07) ==
LOC: ER 06:02
DX: K08.89 Other specified disorders of teeth and supporting structures (principal); Z53.21 Procedure and treatment not carried out due to patient leaving prior to being seen by health care provider

== ENCOUNTER 2023-05-30 15:17 | Emergency (ER) | payer MEDICAID ==
[~2023-05-30] VITALS: Ht 172.7 cm; Wt 79.1 kg
[2023-05-30 16:36] LABS: BILIRUBIN,URINE NEGATIVE (Neg); CLARITY,URINE CLEAR (Clear); COLOR,URINE YELLOW (Yellow); GLUCOSE, URINE NEGATIVE (Neg); KETONES,URINE NEGATIVE (Neg); LEUKOCYTE ESTERASE ,URINE NEGATIVE (Neg); NITRITES, URINE NEGATIVE (Neg); OCCULT BLOOD,URINE TRACE-INTACT (Neg); PH,URINE 6.5 (4.8-8.0); PROTEIN,URINE NEGATIVE (Neg); UROBILINOGEN,URINE 0.2 E.U/dL (0.2-1.0)
[2023-05-30 16:41] LABS: BACTERIA,URINE NONE SEEN /HPF (Neg); RBC,URINE 0-2 /HPF (0-2); UA COLLECTION TYPE VOIDED; URINE AMPHETAMINE SCREEN NEGATIVE (Neg); URINE BARBITUATE SCREEN NEGATIVE (Neg); URINE BENZODIAZEPINES SCREEN NEGATIVE (Neg); URINE CANNABINOID SCREEN POSITIVE (Neg); URINE COCAINE SCREEN NEGATIVE (Neg); URINE METHADONE SCREEN NEGATIVE (Neg); URINE OPIATE SCREEN NEGATIVE (Neg); URINE PHENCYCLIDINE SCREEN NEGATIVE (Neg); WBC,URINE 0-4 /HPF (0-4)
[2023-05-30 16:42] LABS: CAL OXALATE CRYSTALS FEW /HPF (NEGATIVE); MUCUS STRANDS NONE SEEN /LPF (Neg); SQUAMOUS EPITHELIAL CELL,UR NONE SEEN /LPF (FEW)
[2023-05-30 19:07] LABS: ALBUMIN 3.3 G/DL (3.4-5.0); ANION GAP 6 (8-16); BASOPHILS % (AUTO) 0.5 % (0-1); BLOOD UREA NITROGEN 10 MG/DL (7-18); BUN/CREATININE RATIO 9.6 (10.0-20.0); CALCIUM 8.7 MG/DL (8.5-10.1); CHLORIDE 107 MMOL/L (99-107); CREATININE 1.04 MG/DL (0.60-1.10); EOSINOPHILS # (AUTO) 0.1 X10'3 (0-0.9); EOSINOPHILS % (AUTO) 1.5 % (0-6); GLUCOSE 81 MG/DL (70-104); HEMATOCRIT 41.1 % (42.0-52.0); HEMOGLOBIN 13.8 g/dl (14.0-17.9); LYMPHOCYTES % (AUTO) 16.7 % (21-51); MEAN CORPUSCULAR HEMOGLOBIN 29.3 PG (27.0-31.0); MEAN CORPUSCULAR HGB CONC 33.5 g/dL (33.0-36.5); MEAN CORPUSCULAR VOLUME 87.7 FL (78-98); MEAN PLATELET VOLUME 8.6 FL (7.4-10.4); MONOCYTES # (AUTO) 0.7 X10'3 (0-0.9); MONOCYTES % (AUTO) 12.2 % (2-12); NEUTROPHILS % (AUTO) 69.1 % (42-75); PLATELET COUNT 299 X10'3 (140-440); POTASSIUM 4.1 MMOL/L (3.5-5.1); RED BLOOD COUNT 4.69 X10'6 (4.70-6.10); RED CELL DISTRIBUTION WIDTH 13.6 % (11.5-14.5); SODIUM 144 MMOL/L (135-145); TOTAL CARBON DIOXIDE 30.8 MMOL/L (24-32); WHITE BLOOD COUNT 5.7 X10'3 (4.5-11.0); eCRCL 88 ML/MIN; eGFR 78 ML/MIN
[2023-05-30 19:17] LABS: ETHANOL < 10 MG/DL (<10)
[2023-05-30] MEDS: ibuprofen tablet 400 MG TABLET PO ONE (19:57)
[2023-05-31] MEDS: LORazepam 1 MG tablet PO ONE (14:35)
[2023-05-31] MEDS: ibuprofen tablet 400 MG TABLET PO ONE ×2 (14:35→19:07)
[2023-05-31] MEDS ORDERED: NO HOME MEDS (16:21)
[2023-06-01] MEDS: ibuprofen tablet 400 MG TABLET PO ONE (03:42)
[2023-06-01] MEDS: ibuprofen tablet 400 MG TABLET PO PRN (14:52)
[2023-06-02] MEDS ORDERED: OLAN15TA35 PO (07:15)
[2023-06-02] MEDS: OLANZAPINE 5 MG TABLET PO SCH (21:00)
[2023-06-03 05:52] VITALS: TEMP 97.6
[2023-06-03] MEDS ORDERED: AMOX-102 PO (06:54)
[2023-06-03] MEDS ORDERED: amoxicillin 250mg capsule PO ONE (06:55)
[2023-06-03] MEDS: amoxicillin 250mg capsule PO ONE (07:14)
[2023-06-03] MEDS: amoxicillin 250mg capsule PO SCH (08:00)
[2023-06-03 16:57] VITALS: BP 137/91; PULSE 63; O2SAT 99
[2023-06-03 17:29] VITALS: RESP 18
[2023-06-03] MEDS: traMADol 50MG tablet PO ONE (17:29)
== END 2023-06-04 07:42 ==
LOC: ER 15:18
DX: R45.851 Suicidal ideations (principal); F20.9 Schizophrenia, unspecified; F10.90 Alcohol use, unspecified, uncomplicated; F12.90 Cannabis use, unspecified, uncomplicated; Z20.822 Contact with and (suspected) exposure to COVID-19; Z88.8 Allergy status to other drugs, medicaments and biological substances; Z79.899 Other long term (current) drug therapy; Z59.00 Homelessness unspecified; Z56.0 Unemployment, unspecified
CPT/HCPCS: 36415; 80048; 80305; 80320; 81001; 85025; 87811; 99283; 99285

== ENCOUNTER 2023-07-08 20:24 | Emergency (ER) | payer MEDICAID ==
[~2023-07-08] VITALS: Ht 172.7 cm; Wt 69.7 kg
[~2023-07-08 20:24] MED LIST changes: -CEPH-585 PO; -CLIN-97 PO; -GUAI120015 PO; -OLAN15TA3 PO; +OLAN15TA35 PO; -OLAN5TAB75 PO; -PANT-47 PO; -SODI30SP3 BOTHNARES; -ZIPR20CA2 PO
[2023-07-08 20:30] VITALS: BP 128/91; PULSE 97; RESP 16; TEMP 98; O2SAT 98
== END 2023-07-08 21:30 | disposition home or self-care (01) ==
LOC: ER 20:24
DX: R45.1 Restlessness and agitation (principal); F12.90 Cannabis use, unspecified, uncomplicated; Z88.6 Allergy status to analgesic agent; Z79.899 Other long term (current) drug therapy
CPT/HCPCS: 99281

== ENCOUNTER 2023-08-30 01:47 | Emergency (ER) | payer MEDICAID ==
[~2023-08-30] VITALS: Ht 172.7 cm; Wt 81.4 kg
[2023-08-30] MEDS: ondansetron 4mg rapidly disintigrating tab PO ONE (02:17)
[2023-08-30 03:25] LABS: BASOPHILS % (AUTO) 0.3 % (0-1); EOSINOPHILS % (AUTO) 0 % (0-6); HEMATOCRIT 41.1 % (42.0-52.0); HEMOGLOBIN 14.4 g/dl (14.0-17.9); LYMPHOCYTES # (AUTO) 0.6 X10'3 (1.1-4.8); LYMPHOCYTES % (AUTO) 4.1 % (21-51); MEAN CORPUSCULAR HEMOGLOBIN 30.4 PG (27.0-31.0); MEAN CORPUSCULAR HGB CONC 34.9 g/dL (33.0-36.5); MEAN CORPUSCULAR VOLUME 87.2 FL (78-98); MEAN PLATELET VOLUME 7.9 FL (7.4-10.4); MONOCYTES # (AUTO) 1.2 X10'3 (0-0.9); MONOCYTES % (AUTO) 8.2 % (2-12); NEUTROPHILS # (AUTO) 12.3 X10'3 (1.8-7.7); NEUTROPHILS % (AUTO) 87.4 % (42-75); PLATELET COUNT 328 X10'3 (140-440); RED BLOOD COUNT 4.71 X10'6 (4.70-6.10); RED CELL DISTRIBUTION WIDTH 13.1 % (11.5-14.5); WHITE BLOOD COUNT 14.1 X10'3 (4.5-11.0)
[2023-08-30 04:09] LABS: ALANINE AMINOTRANSFERASE 60 U/L (12-78); ALBUMIN 3.4 G/DL (3.4-5.0); ALKALINE PHOSPHATASE 43 IU/L (46-116); ANION GAP 17 (8-16); ASPARTATE AMINO TRANSFERASE 146 U/L (10-37); BILIRUBIN,TOTAL 1.5 MG/DL (0.1-1.0); BLOOD UREA NITROGEN 9 MG/DL (7-18); BUN/CREATININE RATIO 9.6 (10.0-20.0); CALCIUM 8.6 MG/DL (8.5-10.1); CHLORIDE 85 MMOL/L (99-107); CREATININE 0.94 MG/DL (0.60-1.10); GLUCOSE 58 MG/DL (70-104); POTASSIUM 3.7 MMOL/L (3.5-5.1); SODIUM 122 MMOL/L (135-145); TOTAL PROTEIN 6.8 G/DL (6.4-8.2); eCRCL 96 ML/MIN; eGFR 87 ML/MIN
[2023-08-30 04:16] LABS: ETHANOL < 10 MG/DL (<10); LIPASE 13 U/L (16-77)
[2023-08-30 04:31] LABS: BILIRUBIN,URINE NEGATIVE (Neg); CLARITY,URINE CLEAR (Clear); COLOR,URINE STRAW (Yellow); GLUCOSE, URINE NEGATIVE (Neg); KETONES,URINE >=80 mg/dl (Neg); LEUKOCYTE ESTERASE ,URINE NEGATIVE (Neg); NITRITES, URINE NEGATIVE (Neg); OCCULT BLOOD,URINE SMALL (Neg); PROTEIN,URINE NEGATIVE (Neg); UA COLLECTION TYPE CLN CATCH MIDSTREAM; UROBILINOGEN,URINE 0.2 E.U/dL (0.2-1.0)
[2023-08-30 04:37] LABS: BACTERIA,URINE FEW /HPF (Neg); MUCUS STRANDS FEW /LPF (Neg); RBC,URINE 0-2 /HPF (0-2); SQUAMOUS EPITHELIAL CELL,UR FEW /LPF (FEW); WBC,URINE 0-4 /HPF (0-4)
[2023-08-30 05:29] LABS: URINE AMPHETAMINE SCREEN NEGATIVE (Neg); URINE BARBITUATE SCREEN NEGATIVE (Neg); URINE BENZODIAZEPINES SCREEN NEGATIVE (Neg); URINE CANNABINOID SCREEN NEGATIVE (Neg); URINE COCAINE SCREEN NEGATIVE (Neg); URINE METHADONE SCREEN NEGATIVE (Neg); URINE OPIATE SCREEN NEGATIVE (Neg); URINE PHENCYCLIDINE SCREEN NEGATIVE (Neg)
[2023-08-30] MEDS ORDERED: ONDA4TAB12 PO (06:08)
[2023-08-30] MEDS: normal saline 1000ML IV soln IVB ONE (06:09)
[2023-08-30] MEDS ORDERED: NO HOME MEDS (06:13)
[2023-08-30 08:29] VITALS: BP 122/59; PULSE 59; RESP 14; TEMP 98.6; O2SAT 98
== END 2023-08-30 07:22 | disposition home or self-care (01) ==
LOC: ER 01:47
DX: R11.2 Nausea with vomiting, unspecified (principal); F12.90 Cannabis use, unspecified, uncomplicated; Z88.6 Allergy status to analgesic agent; Z88.8 Allergy status to other drugs, medicaments and biological substances
CPT/HCPCS: 36415; 80053; 80305; 80320; 81001; 82948; 83605; 83690; 84484; 85025; 93005; 96360; 99285; J7030

== ENCOUNTER → 2023-08-31 | Emergency (ER) | payer MEDICAID, MEDICARE ==
[~2023-08-31] VITALS: Ht 172.7 cm; Wt 81.4 kg
[~2023-08-31] MED LIST changes: +NO HOME MEDS; +ONDA4TAB12 PO
[2023-08-31 04:01] VITALS: BP 117/86; PULSE 83; TEMP 97.9; O2SAT 100
[2023-08-31 04:09] VITALS: RESP 16
== END | disposition home or self-care (01) ==
LOC: ER 03:54
DX: R00.2 Palpitations (principal); R11.2 Nausea with vomiting, unspecified; F20.9 Schizophrenia, unspecified; F12.90 Cannabis use, unspecified, uncomplicated; Z56.0 Unemployment, unspecified; Z59.00 Homelessness unspecified; Z88.8 Allergy status to other drugs, medicaments and biological substances
CPT/HCPCS: 93005; 99283

== ENCOUNTER 2023-09-08 01:26 | Emergency (ER) | payer MEDICARE, MEDICAID ==
[~2023-09-08] VITALS: Ht 172.7 cm; Wt 81.4 kg
[~2023-09-08 01:26] MED LIST changes: -OLAN15TA35 PO; -ONDA4TAB12 PO
[2023-09-08] MEDS ORDERED: SULF1TAB49 PO (02:43)
[2023-09-08] MEDS: sulfamethoxazole/trimethoprim DS (800/160mg) tablet PO ONE (02:54)
[2023-09-08] MEDS: ondansetron 4mg rapidly disintigrating tab PO ONE (02:55)
[2023-09-08 03:09] VITALS: BP 118/83; PULSE 76; RESP 15; TEMP 98.2; O2SAT 95
== END 2023-09-08 03:18 | disposition home or self-care (01) ==
LOC: ER 01:28
DX: K61.1 Rectal abscess (principal); F12.90 Cannabis use, unspecified, uncomplicated; Z88.6 Allergy status to analgesic agent; Z88.5 Allergy status to narcotic agent
CPT/HCPCS: 99284

== ENCOUNTER 2023-09-22 11:32 | Emergency (ER) | payer MEDICARE, MEDICAID ==
[~2023-09-22] VITALS: Ht 175.3 cm; Wt 81.8 kg
[2023-09-22 11:51] VITALS: BP 142/86; PULSE 89; RESP 16; TEMP 97.4; O2SAT 98
== END 2023-09-22 12:34 | disposition left against medical advice (07) ==
LOC: ER 11:33
DX: L02.415 Cutaneous abscess of right lower limb (principal); F12.90 Cannabis use, unspecified, uncomplicated; F20.9 Schizophrenia, unspecified; Z53.21 Procedure and treatment not carried out due to patient leaving prior to being seen by health care provider; Z88.6 Allergy status to analgesic agent; Z88.5 Allergy status to narcotic agent

== ENCOUNTER 2023-10-28 18:38 | Emergency (ER) | payer MEDICARE, MEDICAID ==
[~2023-10-28] VITALS: Ht 172.7 cm; Wt 179.0 kg
[2023-10-28 18:44] VITALS: BP 145/98; PULSE 111; RESP 20; TEMP 98.9; O2SAT 98
[2023-10-28] MEDS: cephalexin 500mg capsule PO ONE (20:13)
[2023-10-28] MEDS ORDERED: CEPH-585 PO (20:13)
== END 2023-10-28 20:28 | disposition home or self-care (01) ==
LOC: ER 18:39
DX: L03.317 Cellulitis of buttock (principal); L02.31 Cutaneous abscess of buttock; F20.9 Schizophrenia, unspecified; F12.90 Cannabis use, unspecified, uncomplicated; Z88.8 Allergy status to other drugs, medicaments and biological substances; Z59.00 Homelessness unspecified; Z56.0 Unemployment, unspecified; Z48.00 Encounter for change or removal of nonsurgical wound dressing
CPT/HCPCS: 99283

== ENCOUNTER 2023-11-03 14:34 | Emergency (ER) | payer MEDICAID ==
[~2023-11-03] VITALS: Ht 172.7 cm; Wt 81.5 kg
[~2023-11-03 14:34] MED LIST changes: +CEPH-585 PO
[2023-11-03 14:45] VITALS: BP 114/67; PULSE 79; RESP 18; TEMP 97.8; O2SAT 98
[2023-11-03] MEDS ORDERED: BACI1PAC7 TOP (15:32)
[2023-11-03] MEDS ORDERED: SULF1TAB49 PO (15:32)
== END 2023-11-03 15:53 | disposition home or self-care (01) ==
LOC: ER 14:35
DX: L03.317 Cellulitis of buttock (principal); M79.672 Pain in left foot; F12.90 Cannabis use, unspecified, uncomplicated; Z88.5 Allergy status to narcotic agent; Z88.6 Allergy status to analgesic agent; Z79.2 Long term (current) use of antibiotics
CPT/HCPCS: 99283

== ENCOUNTER 2023-11-04 14:17 | Emergency (ER) | payer MEDICAID ==
[~2023-11-04] VITALS: Ht 167.6 cm; Wt 81.5 kg
[~2023-11-04 14:17] MED LIST changes: +BACI1PAC7 TOP; +SULF1TAB49 PO
[2023-11-04 14:24] VITALS: BP 122/62; PULSE 87; RESP 16; TEMP 97.6; O2SAT 99
== END 2023-11-04 14:40 | disposition home or self-care (01) ==
LOC: ER 14:18
DX: L03.818 Cellulitis of other sites (principal); Z76.0 Encounter for issue of repeat prescription; F20.9 Schizophrenia, unspecified; F12.90 Cannabis use, unspecified, uncomplicated; Z88.8 Allergy status to other drugs, medicaments and biological substances; Z79.2 Long term (current) use of antibiotics; Z79.899 Other long term (current) drug therapy; Z56.0 Unemployment, unspecified; Z59.00 Homelessness unspecified
CPT/HCPCS: 99281

== ENCOUNTER 2023-11-09 07:56 | Emergency (ER) | payer MEDICAID, MEDICARE ==
[~2023-11-09] VITALS: Ht 172.7 cm; Wt 80.9 kg
[2023-11-09 08:12] VITALS: TEMP 97.5
[2023-11-09] MEDS ORDERED: KETO15CR2 TOP (10:21)
--- NOTE | 2023-11-09 10:38 | NUR ---
Patient here requesting food, sandwiches, and shoes.
[2023-11-09 10:39] VITALS: BP 134/90; PULSE 54; RESP 16; O2SAT 98
[2023-11-23] MEDS ORDERED: KETO15CR2 TOP (10:03)
== END 2023-11-09 10:42 | disposition home or self-care (01) ==
LOC: ER 07:57
DX: Z00.00 Encounter for general adult medical examination without abnormal findings (principal); L08.89 Other specified local infections of the skin and subcutaneous tissue; B95.8 Unspecified staphylococcus as the cause of diseases classified elsewhere; F12.90 Cannabis use, unspecified, uncomplicated; F20.9 Schizophrenia, unspecified; Z88.8 Allergy status to other drugs, medicaments and biological substances; Z79.2 Long term (current) use of antibiotics; Z79.899 Other long term (current) drug therapy; Z59.00 Homelessness unspecified; Z56.0 Unemployment, unspecified
CPT/HCPCS: 99282; 99283

== ENCOUNTER 2023-12-04 12:19 | Emergency (ER) | payer MEDICAID ==
[~2023-12-04] VITALS: Ht 172.7 cm; Wt 67.6 kg
[~2023-12-04 12:19] MED LIST changes: +KETO15CR2 TOP; -SULF1TAB49 PO
[2023-12-04 12:35] VITALS: BP 132/85; PULSE 77; RESP 16; TEMP 98; O2SAT 98
== END 2023-12-04 14:02 | disposition home or self-care (01) ==
LOC: ER 12:20
DX: L90.5 Scar conditions and fibrosis of skin (principal); F20.9 Schizophrenia, unspecified; F12.90 Cannabis use, unspecified, uncomplicated; Z88.8 Allergy status to other drugs, medicaments and biological substances; Z79.899 Other long term (current) drug therapy; Z79.2 Long term (current) use of antibiotics; Z59.00 Homelessness unspecified; Z56.0 Unemployment, unspecified
CPT/HCPCS: 99281

== ENCOUNTER 2023-12-30 10:23 | Emergency (ER) | payer MEDICAID ==
[~2023-12-30] VITALS: Ht 172.7 cm; Wt 75.0 kg
[2023-12-30 10:38] VITALS: BP 142/108; PULSE 87; RESP 18; TEMP 97.8; O2SAT 100
== END 2023-12-30 10:33 | disposition left against medical advice (07) ==
LOC: ER 10:23
DX: Z53.21 Procedure and treatment not carried out due to patient leaving prior to being seen by health care provider (principal); Z88.8 Allergy status to other drugs, medicaments and biological substances

== ENCOUNTER 2024-01-01 04:39 | Emergency (ER) | payer MEDICAID ==
[2024-01-01] MEDS ORDERED: DOXY100C43 PO (04:51)
== END 2024-01-01 04:49 | disposition left against medical advice (07) ==
LOC: ER 04:39
DX: L73.9 Follicular disorder, unspecified (principal); F12.90 Cannabis use, unspecified, uncomplicated; F20.9 Schizophrenia, unspecified; Z88.8 Allergy status to other drugs, medicaments and biological substances; Z79.2 Long term (current) use of antibiotics; Z79.899 Other long term (current) drug therapy; Z59.00 Homelessness unspecified; Z56.0 Unemployment, unspecified
CPT/HCPCS: 99283

== ENCOUNTER 2024-01-01 16:58 | Emergency (ER) | payer MEDICAID ==
[~2024-01-01] VITALS: Ht 172.7 cm; Wt 81.4 kg
[~2024-01-01 16:58] MED LIST changes: +DOXY100C43 PO
[2024-01-01 17:01] VITALS: BP 121/80; PULSE 94; RESP 18; O2SAT 100
== END 2024-01-01 19:55 | disposition home or self-care (01) ==
LOC: ER 16:59
DX: Z48.00 Encounter for change or removal of nonsurgical wound dressing (principal); F20.9 Schizophrenia, unspecified; F12.90 Cannabis use, unspecified, uncomplicated; Z59.00 Homelessness unspecified; Z56.0 Unemployment, unspecified; Z88.8 Allergy status to other drugs, medicaments and biological substances; Z79.2 Long term (current) use of antibiotics; Z79.899 Other long term (current) drug therapy
CPT/HCPCS: 99281

== ENCOUNTER 2024-01-03 06:56 | Emergency (ER) | payer MEDICAID | END 2024-01-03 07:55 | disposition left against medical advice (07) | LOC: ER 06:56 | DX: L03.90 Cellulitis, unspecified (principal); Z53.21 Procedure and treatment not carried out due to patient leaving prior to being seen by health care provider ==

== ENCOUNTER 2024-01-03 08:15 | Emergency (ER) | payer MEDICAID ==
[~2024-01-03] VITALS: Ht 172.7 cm; Wt 67.7 kg
[2024-01-03 08:17] VITALS: PULSE 66; RESP 16
[2024-01-03 08:54] VITALS: TEMP 98.1
== END 2024-01-03 08:55 | disposition home or self-care (01) ==
LOC: ER 08:16
DX: R21 Rash and other nonspecific skin eruption (principal); F20.9 Schizophrenia, unspecified; F12.90 Cannabis use, unspecified, uncomplicated; Z88.5 Allergy status to narcotic agent; Z88.6 Allergy status to analgesic agent; Z79.2 Long term (current) use of antibiotics; Z79.899 Other long term (current) drug therapy
CPT/HCPCS: 99281

== ENCOUNTER 2024-01-03 15:22 | Emergency (ER) | payer MEDICAID ==
[~2024-01-03] VITALS: Ht 172.7 cm; Wt 67.5 kg
[2024-01-03 15:30] VITALS: BP 113/86; PULSE 62; RESP 16; TEMP 98; O2SAT 100
== END 2024-01-03 16:41 | disposition home or self-care (01) ==
LOC: ER 15:23
DX: Z76.5 Malingerer [conscious simulation] (principal); F12.90 Cannabis use, unspecified, uncomplicated; Z88.5 Allergy status to narcotic agent; Z88.6 Allergy status to analgesic agent; Z79.2 Long term (current) use of antibiotics; Z79.899 Other long term (current) drug therapy
CPT/HCPCS: 99281

== ENCOUNTER 2024-01-05 07:37 | Emergency (ER) | payer MEDICAID, MEDICARE ==
[~2024-01-05] VITALS: Ht 172.7 cm; Wt 81.4 kg
[2024-01-05 08:07] VITALS: BP 145/83; PULSE 86; RESP 18; O2SAT 94
[2024-01-05 09:24] VITALS: TEMP 98.2
== END 2024-01-05 09:27 | disposition home or self-care (01) ==
LOC: ER 07:37
DX: Z76.5 Malingerer [conscious simulation] (principal); R44.0 Auditory hallucinations; F12.90 Cannabis use, unspecified, uncomplicated; Z59.00 Homelessness unspecified; Z56.0 Unemployment, unspecified; Z20.822 Contact with and (suspected) exposure to COVID-19; Z88.5 Allergy status to narcotic agent; Z88.8 Allergy status to other drugs, medicaments and biological substances; Z79.2 Long term (current) use of antibiotics; Z79.899 Other long term (current) drug therapy
CPT/HCPCS: 99284

== ENCOUNTER 2024-01-05 23:25 | Emergency (ER) | payer MEDICAID, MEDICARE ==
[~2024-01-05] VITALS: Ht 172.7 cm; Wt 81.4 kg
[2024-01-05 23:50] VITALS: BP_SYST 113; PULSE 72; RESP 16; TEMP 97.2; O2SAT 98
== END 2024-01-06 05:42 | disposition home or self-care (01) ==
LOC: ER 23:26
DX: L03.119 Cellulitis of unspecified part of limb (principal); R21 Rash and other nonspecific skin eruption; F12.90 Cannabis use, unspecified, uncomplicated; F20.9 Schizophrenia, unspecified; Z59.9 Problem related to housing and economic circumstances, unspecified; Z88.5 Allergy status to narcotic agent; Z88.6 Allergy status to analgesic agent; Z79.1 Long term (current) use of non-steroidal anti-inflammatories (NSAID); Z79.2 Long term (current) use of antibiotics
CPT/HCPCS: 99281

== ENCOUNTER 2024-01-11 09:58 | Emergency (ER) | payer MEDICAID ==
[~2024-01-11] VITALS: Ht 172.7 cm; Wt 67.6 kg
[~2024-01-11 09:58] MED LIST changes: -DOXY100C43 PO
[2024-01-11 10:28] VITALS: BP 136/78; PULSE 68; TEMP 97.5; O2SAT 98
[2024-01-11] MEDS ORDERED: OLAN5TAB3 PO (13:20)
[2024-01-11 13:22] VITALS: RESP 20
== END 2024-01-11 13:23 | disposition home or self-care (01) ==
LOC: ER 09:59
DX: J35.8 Other chronic diseases of tonsils and adenoids (principal); F12.90 Cannabis use, unspecified, uncomplicated; Z76.0 Encounter for issue of repeat prescription; F20.9 Schizophrenia, unspecified; Z88.5 Allergy status to narcotic agent; Z59.00 Homelessness unspecified; Z56.0 Unemployment, unspecified
CPT/HCPCS: 99281

== ENCOUNTER 2024-01-12 04:04 | Emergency (ER) | payer MEDICAID ==
[~2024-01-12] VITALS: Ht 167.6 cm; Wt 77.3 kg
[~2024-01-12 04:04] MED LIST changes: +OLAN5TAB3 PO
[2024-01-12 04:16] VITALS: BP 122/81; PULSE 69; RESP 16; TEMP 99; O2SAT 99
== END 2024-01-12 06:12 | disposition home or self-care (01) ==
LOC: ER 04:05
DX: M79.672 Pain in left foot (principal); F20.9 Schizophrenia, unspecified; F12.90 Cannabis use, unspecified, uncomplicated; Z88.5 Allergy status to narcotic agent; Z88.6 Allergy status to analgesic agent; Z79.2 Long term (current) use of antibiotics; Z79.899 Other long term (current) drug therapy
CPT/HCPCS: 99282

== ENCOUNTER 2024-01-12 13:18 | Emergency (ER) | payer MEDICAID ==
[~2024-01-12] VITALS: Ht 172.7 cm; Wt 81.0 kg
[2024-01-12 13:19] VITALS: BP 125/88; PULSE 87; RESP 16; O2SAT 97
[2024-01-12 15:49] VITALS: TEMP 97.3
== END 2024-01-12 15:51 | disposition left against medical advice (07) ==
LOC: ER 13:18
DX: S93.402A Sprain of unspecified ligament of left ankle, initial encounter (principal); F20.9 Schizophrenia, unspecified; Z88.5 Allergy status to narcotic agent; Z88.6 Allergy status to analgesic agent; Z79.2 Long term (current) use of antibiotics; Z79.899 Other long term (current) drug therapy; X58.XXXA Exposure to other specified factors, initial encounter; Y93.89 Activity, other specified; Y92.89 Other specified places as the place of occurrence of the external cause; Y99.8 Other external cause status
CPT/HCPCS: 73610; 99283

== ENCOUNTER 2024-04-23 14:47 | Emergency (ER) | payer MEDICAID ==
[~2024-04-23] VITALS: Ht 172.7 cm; Wt 69.4 kg
[2024-04-23 15:07] VITALS: BP 129/86; PULSE 90; RESP 16; TEMP 99.4; O2SAT 98
== END 2024-04-23 15:38 | disposition home or self-care (01) ==
LOC: ER 14:47
DX: Z76.5 Malingerer [conscious simulation] (principal); F20.9 Schizophrenia, unspecified; F12.90 Cannabis use, unspecified, uncomplicated; Z59.00 Homelessness unspecified; Z56.0 Unemployment, unspecified; Z88.5 Allergy status to narcotic agent; Z79.899 Other long term (current) drug therapy
CPT/HCPCS: 99281

== ENCOUNTER 2024-05-25 16:24 | Emergency (ER) | payer MEDICARE, MEDICAID ==
[~2024-05-25] VITALS: Ht 172.7 cm; Wt 68.4 kg
[2024-05-25 16:31] VITALS: BP 128/89; PULSE 79; RESP 16; TEMP 98.4; O2SAT 98
== END 2024-05-25 18:08 | disposition left against medical advice (07) ==
LOC: ER 16:25
DX: L03.317 Cellulitis of buttock (principal); Z53.21 Procedure and treatment not carried out due to patient leaving prior to being seen by health care provider; Z88.6 Allergy status to analgesic agent; Z88.5 Allergy status to narcotic agent

== ENCOUNTER 2024-06-18 15:55 | Emergency (ER) | payer MEDICARE, MEDICAID ==
[~2024-06-18] VITALS: Ht 172.7 cm; Wt 66.4 kg
[2024-06-18 16:08] VITALS: BP 154/108; PULSE 90; RESP 16; TEMP 98.7; O2SAT 99
== END 2024-06-18 17:00 | disposition home or self-care (01) ==
LOC: ER 15:56
DX: S61.219D Laceration without foreign body of unspecified finger without damage to nail, subsequent encounter (principal); F20.9 Schizophrenia, unspecified; Z88.5 Allergy status to narcotic agent; X58.XXXD Exposure to other specified factors, subsequent encounter
CPT/HCPCS: 99281

== ENCOUNTER 2024-06-19 17:49 | Emergency (ER) | payer MEDICARE, MEDICAID ==
[~2024-06-19] VITALS: Ht 172.7 cm; Wt 66.4 kg
[2024-06-19 19:14] VITALS: BP 140/82; PULSE 83; RESP 18; TEMP 98.6; O2SAT 99
== END 2024-06-19 19:15 | disposition home or self-care (01) ==
LOC: ER 17:50
DX: M79.645 Pain in left finger(s) (principal); F20.9 Schizophrenia, unspecified; F12.90 Cannabis use, unspecified, uncomplicated; Z88.5 Allergy status to narcotic agent
CPT/HCPCS: 73130; 99283